=== PATIENT | female | born 1955 | race Caucasian/White ===

== ENCOUNTER → 2017-12-28 | Outpatient (CLI) | payer OTHER ==
[~2017-12-28] MED LIST: ACETAMINOPHEN325 M1 PO; ALPRAZOLAM 0.0.25 M1 PO; AUGMENTIN 875-1 EACH PO; CALCIUM 500+D1 EAC2 PO; CITRATE OF MAG296 ML PO; DULCOLAX5 MG PO; HYDROCODON-ACE1 EAC7 PO; HYDROCODON-ACE1 EACH PO; IBUPROFEN 200200 M1 PO; IBUPROFEN200 M2 PO; K-DUR 20 MEQ T20 MEQ PO; LOPERAMIDE 2 MG2 M1 PO; MAGNESIUM OXID200 MG PO; MELATONIN3 MG PO; MULTIVITAMINS1 EAC7 PO; NEURONTIN 300M300 M2 PO; PERCOCET 5-3251 EACH PO; ROCEPHIN 1 GM VL1 G1 IV; VITAMIN B-12500 MCG PO; VITAMIN E400 UNIT PO; VITCB500GO PO; XANAX 0.5 MG0.5 MG PO; ZOFRAN 4 MG ORAL4 MG DISSOLVE; ZOFRAN ODT4 MG PO; [UNRECOGNIZED DRUG - OTHER] PO
== END ==
LOC: M.WC 08:30
DX: L02.214 Cutaneous abscess of groin (principal); L02.415 Cutaneous abscess of right lower limb; S31.819A Unspecified open wound of right buttock, initial encounter; G62.9 Polyneuropathy, unspecified; L59.8 Other specified disorders of the skin and subcutaneous tissue related to radiation; L73.2 Hidradenitis suppurativa; F41.9 Anxiety disorder, unspecified; Z85.048 Personal history of other malignant neoplasm of rectum, rectosigmoid junction, and anus; Z87.891 Personal history of nicotine dependence; Z85.528 Personal history of other malignant neoplasm of kidney; Z86.718 Personal history of other venous thrombosis and embolism; Z93.2 Ileostomy status; Z90.710 Acquired absence of both cervix and uterus; W88.0XXA Exposure to X-rays, initial encounter; Y93.89 Activity, other specified; Y92.89 Other specified places as the place of occurrence of the external cause; Y99.8 Other external cause status

== ENCOUNTER → 2018-01-04 | Outpatient (CLI) | payer OTHER | LOC: M.WC 04:59 | DX: L02.415 Cutaneous abscess of right lower limb (principal); L02.215 Cutaneous abscess of perineum; N76.0 Acute vaginitis; L59.8 Other specified disorders of the skin and subcutaneous tissue related to radiation; L73.2 Hidradenitis suppurativa; G62.9 Polyneuropathy, unspecified; F41.9 Anxiety disorder, unspecified; Z86.718 Personal history of other venous thrombosis and embolism; Z85.048 Personal history of other malignant neoplasm of rectum, rectosigmoid junction, and anus; Z87.891 Personal history of nicotine dependence; Z85.528 Personal history of other malignant neoplasm of kidney; Z93.3 Colostomy status ==

== ENCOUNTER → 2018-01-11 | Outpatient (CLI) | payer OTHER | LOC: M.WC 04:56 | DX: L59.8 Other specified disorders of the skin and subcutaneous tissue related to radiation (principal); L02.215 Cutaneous abscess of perineum; L02.415 Cutaneous abscess of right lower limb; L73.2 Hidradenitis suppurativa; G62.9 Polyneuropathy, unspecified; F41.9 Anxiety disorder, unspecified; Z86.718 Personal history of other venous thrombosis and embolism; Z85.048 Personal history of other malignant neoplasm of rectum, rectosigmoid junction, and anus; Z87.891 Personal history of nicotine dependence; Z85.528 Personal history of other malignant neoplasm of kidney; L02.214 Cutaneous abscess of groin; Y84.2 Radiological procedure and radiotherapy as the cause of abnormal reaction of the patient, or of later complication, without mention of misadventure at the time of the procedure ==

== ENCOUNTER → 2018-02-06 | Outpatient (CLI) | payer OTHER ==
--- NOTE | 2018-02-06 11:23 | NUR ---
PATIENT ARRIVAL FROM HOME TO OP INFUSION AREA. MADE SELF COMFORTABLE IN RECLINER. CALL LIGHT AND REMOTE GIVEN TO PATIENT. HISTORY UPDATED AND ASSESSMENT COMPLETED. VS AND ORDERS REVIEWED. PICC LINE LEFT UPPER ARM WITH DRESSING C/D/I. UNABLE TO FLUSH OR ASPIRATE BLOOD FROM DUAL LUMEN PICC. DRESSING CHANGED TO PICC AND ORDERS OBTAINED PER DR. LOVING TO CATH FELIPE PICC LINE. CATH FLEIPE DRUG THEN INSTILLED AT 1217 CHARTED.
[2018-02-06 11:25] VITALS: BP 101/64
--- NOTE | 2018-02-06 13:17 | NUR ---
AFTER CATH FELIPE DWELL TIME AT AN HOUR, ATTEMPTED TO OBTAIN BLOOD RETURN WITHOUT SUCCESS. WILL ALLOW ANOTHER HOUR OF CATH FELIPE DWELL TIME.
--- NOTE | 2018-02-06 14:17 | NUR ---
AFTER 2 HOURS OF CATH FLOW DWELL TIME, ABLE TO WITHDRAW 5 MLS OF BLOOD FROM DUAL LUMENS OF PICC LINE. LABS DRAWN ORDERED PER DR. LOVING, THEN BOTH PORTS FLUSHED WITH NS 20MLS. ABLE TO THEN START INFUSION OF INVANZ ANTIBIOTIC ORDERED ONCE PICC LINE PATENCY ESTABLISHED.
[2018-02-06 14:49] LABS: HEMATOCRIT 28.7 % (37.0-47.0); HEMOGLOBIN 9.3 gm/dL (12.0-15.0); MCHC 32.3 g/dL (28.0-37.0); MCV 83.7 fL (80.0-100.0); MPV 6.9 fl. (7.2-11.1); RBC 3.43 mil/uL (4.20-5.00); RDW-CV 17.3 % (10.5-14.5); WBC 8.1 thou/uL (4.0-11.0)
--- NOTE | 2018-02-06 15:09 | NUR ---
PATIENT TOLERATES INFUSION OF ANTIBIOTIC WITHOUT PROBLEMS. DENIES CONCERNS. PATIENT THEN DEPARTS FOR HOME AMBULATORY AT 1509.
[2018-02-06 15:13] LABS: ALBUMIN 2.4 g/dL (3.4-5.0); CALCIUM 8.9 mg/dL (8.5-10.1); CREATININE 1.3 mg/dL (0.6-1.3); TOTAL BILIRUBIN 0.2 mg/dL (<0.1-1.0); TOTAL PROTEIN 6.2 g/dL (6.4-8.2)
== END ==
LOC: M.INFUS 02:10
PROVIDERS: Specialist
DX: N39.0 Urinary tract infection, site not specified (principal); B95.1 Streptococcus, group B, as the cause of diseases classified elsewhere

== ENCOUNTER → 2018-02-07 | Outpatient (CLI) | payer OTHER ==
[2018-02-07 09:15] VITALS: BP 115/67
--- NOTE | 2018-02-07 10:35 | NUR ---
ARRIVED AMBULATORY. MADE SELF COMFORTABLE IN RECLINER. PICC LINE CHECKED AND NOTED TO BE PATENT AND FREE FROM SIGN OF INFECTION. INFUSION COMPLETED AND TOLERAETD WELL. DENIES ADVERSE REACTION TO MULTIPLE INFUSIONS OF SAME. DENEIS NEEDS AT DISCHARGE.
== END ==
LOC: M.INFUS 02:44 → M.WC 02:44
DX: N39.0 Urinary tract infection, site not specified (principal); B95.1 Streptococcus, group B, as the cause of diseases classified elsewhere

== ENCOUNTER → 2018-02-08 | Outpatient (CLI) | payer OTHER ==
[2018-02-08 11:00] VITALS: BP 100/62
[2018-02-08 12:10] VITALS: BP 108/70
--- NOTE | 2018-02-08 12:31 | NUR ---
PATIENT ERTRAPENUIM INFUSION COMPLETE WITH NO COMPLAINTS OF ADVERSE EVENTS. LINE FLUSHED, DISCHARGE INSTRUCTIONS REVIEWED, PATIENT VERBALIZED UNDERSTANDING.
== END ==
LOC: M.INFUS 03:39
DX: N39.0 Urinary tract infection, site not specified (principal); B95.1 Streptococcus, group B, as the cause of diseases classified elsewhere

== ENCOUNTER → 2018-02-09 | Outpatient (CLI) | payer OTHER | LOC: M.INFUS 08:00 | DX: N39.0 Urinary tract infection, site not specified (principal); B95.1 Streptococcus, group B, as the cause of diseases classified elsewhere ==

== ENCOUNTER → 2018-02-11 | Outpatient (CLI) | payer OTHER ==
[2018-02-11 11:00] VITALS: BP 108/70
[2018-02-11 12:43] VITALS: BP 100/65
== END ==
LOC: M.INFUS 01:08
DX: N39.0 Urinary tract infection, site not specified (principal); B95.1 Streptococcus, group B, as the cause of diseases classified elsewhere

== ENCOUNTER → 2018-02-12 | Outpatient (CLI) | payer OTHER ==
[2018-02-12 11:05] VITALS: BP 127/68
[2018-02-12 12:20] VITALS: BP 132/70
== END ==
LOC: M.INFUS 02:22
DX: N39.0 Urinary tract infection, site not specified (principal); B95.1 Streptococcus, group B, as the cause of diseases classified elsewhere

== ENCOUNTER → 2018-02-13 | Outpatient (CLI) | payer OTHER ==
[2018-02-13 11:13] LABS: HEMATOCRIT 31.9 % (37.0-47.0); HEMOGLOBIN 10.2 gm/dL (12.0-15.0); MCHC 31.8 g/dL (28.0-37.0); MCV 84.9 fL (80.0-100.0); MPV 7.7 fl. (7.2-11.1); RBC 3.76 mil/uL (4.20-5.00); RDW-CV 17.9 % (10.5-14.5); WBC 8.2 thou/uL (4.0-11.0)
[2018-02-13 11:23] LABS: CREATININE 1.5 mg/dL (0.6-1.3); POTASSIUM 3.6 mmol/L (3.5-5.1)
--- NOTE | 2018-02-13 13:28 | NUR ---
ARRIVED AMBUILATORY. MADE SELF COMFORTABLE. PICC LINE PATENT. INFUSION COMPLETED AND TOELRATED WELL. WEEKLY LABS AND PICC DRESSING COMPLETED. DENIES NEEDS AT DISCHARGE.
== END ==
LOC: M.INFUS 03:06
PROVIDERS: Specialist
DX: N73.1 Chronic parametritis and pelvic cellulitis (principal)

== ENCOUNTER → 2018-02-14 | Outpatient (CLI) | payer OTHER ==
--- NOTE | 2018-02-14 12:20 | NUR ---
ARRIVED AMBULATORY. MADE SELF COMFORTABLE IN RECLINER. BOTH LUMAN OF PICC PATENT WITH GOOD BRISK BLOOD RETURN NOTED AND FLUSHED WITH EASE. INFUSION COMPLETED AND TOLERATED WELL. DENEIS NEEDS AT DISCHARGE.
== END ==
LOC: M.INFUS 04:51
DX: N73.1 Chronic parametritis and pelvic cellulitis (principal)

== ENCOUNTER → 2018-02-15 | Outpatient (CLI) | payer OTHER ==
[2018-02-15 11:00] VITALS: BP 106/67
== END ==
LOC: M.INFUS 00:38
DX: N73.1 Chronic parametritis and pelvic cellulitis (principal)

== ENCOUNTER → 2018-02-16 | Outpatient (CLI) | payer OTHER | LOC: M.INFUS 10:52 | DX: N73.1 Chronic parametritis and pelvic cellulitis (principal) ==

== ENCOUNTER → 2018-02-17 | Outpatient (CLI) | payer OTHER | LOC: M.INFUS 10:17 | DX: N73.1 Chronic parametritis and pelvic cellulitis (principal) ==

== ENCOUNTER → 2018-02-18 | Outpatient (CLI) | payer OTHER ==
[2018-02-18 11:10] VITALS: BP 101/60
--- NOTE | 2018-02-18 13:15 | NUR ---
ARRIVED AMUBLATORY. MADE SLEF COMFORTABLE IN RECLINER. INFUSION COMPLETED AND TOLERATED WELL. PT REPORTS HAVING 2 DR. APPOINTMENT TOMORROW AND WILL CONTACT INFUSION LAB IF NEEDING TO CONTINUE OR NEEDS PICC REMOVED. DENIES CURRENT NEEDS AT DISCHARGE.
== END ==
LOC: M.INFUS 01:26
DX: N73.1 Chronic parametritis and pelvic cellulitis (principal)

== ENCOUNTER → 2018-02-20 | Outpatient (CLI) | payer OTHER ==
[2018-02-20 11:30] VITALS: BP 94/60
[2018-02-20 11:36] LABS: HEMATOCRIT 31.3 % (37.0-47.0); HEMOGLOBIN 9.9 gm/dL (12.0-15.0); MCH 26.7 pg (26.0-34.0); MCHC 31.6 g/dL (28.0-37.0); MCV 84.7 fL (80.0-100.0); MPV 7.7 fl. (7.2-11.1); RBC 3.7 mil/uL (4.20-5.00); WBC 6.4 thou/uL (4.0-11.0)
[2018-02-20 12:13] LABS: ALBUMIN 2.8 g/dL (3.4-5.0); CREATININE 1.5 mg/dL (0.6-1.3); TOTAL BILIRUBIN 0.2 mg/dL (<0.1-1.0); TOTAL PROTEIN 7.1 g/dL (6.4-8.2)
--- NOTE | 2018-02-20 13:18 | NUR ---
ARRIVED AMBULATORY. PICC PATNET WITH GOOD BLOOD RETURN AND EASY FLUSH. WEEKLY LABS DRAWN FROM PICC. PICC DRESSING CHANGED. INFUSION COMPELTED AND TOELRAETED WELL. DENIES NEEDS AT DISCHARGE.
== END ==
LOC: M.INFUS 04:57
PROVIDERS: Specialist
DX: N73.1 Chronic parametritis and pelvic cellulitis (principal)

== ENCOUNTER → 2018-02-21 | Outpatient (CLI) | payer OTHER ==
[2018-02-21 11:00] VITALS: BP 122/70
--- NOTE | 2018-02-21 13:32 | NUR ---
ARRIVED AMBULATORY. MADE SELF COMFORTABLE IN RECLINER. PICC PATENT. DENIES ADVERSE REACTION TO MU,TOPEL INFUSIONS OF SAME. INFUSION COMPELTED AND TOELRATED WELL. LINE FLUSHED.
== END ==
LOC: M.INFUS 06:09
DX: N73.1 Chronic parametritis and pelvic cellulitis (principal)

== ENCOUNTER → 2018-02-22 | Outpatient (CLI) | payer OTHER ==
[2018-02-22 10:35] VITALS: BP 132/75
--- NOTE | 2018-02-22 14:06 | NUR ---
ARRIVED AMBULATORY. PT REPORTS TOUNGE SWELLING AND PAINFULL. ALSO AROUND MOUTH ITCHING. SPOKE WITH DR. LOVING AND NEW ORDER RECIEVED FOR BENADRYL 50MG PO X1 NOW AND INSTRUCT PT TO TAKE ZYRTEC DAILY AND BENADRYL PRE MED ON WAY IN FOR DAILY INFUSION. PT VOICED UNDERSTANDING AND AGREED. MITZI'S INFUSION COMPLETED AND TOLERATED WELL. PT REPORTED TOUGE SWELLING HAS LESSENED AND SHE IS FEELIN BETTER PRIOR TO DISCHARGE. PT INSTRUCTED TO COME BACK TO ED IF SWELLING RETURNS OF INCREASES.
== END ==
LOC: M.INFUS 04:41
DX: N73.1 Chronic parametritis and pelvic cellulitis (principal)

== ENCOUNTER → 2018-02-23 | Outpatient (CLI) | payer OTHER | LOC: M.INFUS 08:00 | DX: N73.1 Chronic parametritis and pelvic cellulitis (principal) ==

== ENCOUNTER → 2018-02-24 | Outpatient (CLI) | payer OTHER | LOC: M.INFUS 08:00 | DX: N73.1 Chronic parametritis and pelvic cellulitis (principal) ==

== ENCOUNTER → 2018-02-25 | Outpatient (CLI) | payer OTHER ==
[2018-02-25 10:50] VITALS: BP 142/71
--- NOTE | 2018-02-25 12:07 | NUR ---
ARRIVED AMBULATORY. MADE SELF COMFORTABLE IN RECLINER. PICC LINE PATENT. DENIES ADVERSE REACTION TO PRIOR INFUSIONS OF SAME. INFUSION COMPLETED AND TOELRATED WELL. DENIES NEEDS AT DISCAHRGE.
== END ==
LOC: M.INFUS 01:04
DX: N73.1 Chronic parametritis and pelvic cellulitis (principal)

== ENCOUNTER → 2018-02-26 | Outpatient (CLI) | payer OTHER ==
[2018-02-26 11:08] VITALS: BP 129/66
== END ==
LOC: M.INFUS 03:10
DX: N73.1 Chronic parametritis and pelvic cellulitis (principal)

== ENCOUNTER → 2018-02-27 | Outpatient (CLI) | payer OTHER ==
[2018-02-27 09:10] VITALS: BP 107/66
[2018-02-27 09:11] LABS: HEMATOCRIT 33.4 % (37.0-47.0); HEMOGLOBIN 10.8 gm/dL (12.0-15.0); MCH 27.1 pg (26.0-34.0); MCHC 32.2 g/dL (28.0-37.0); MCV 84.3 fL (80.0-100.0); MPV 7.5 fl. (7.2-11.1); RBC 3.97 mil/uL (4.20-5.00); WBC 6.4 thou/uL (4.0-11.0)
[2018-02-27 09:17] LABS: ALBUMIN 3.1 g/dL (3.4-5.0); CALCIUM 9.4 mg/dL (8.5-10.1); CREATININE 1.5 mg/dL (0.6-1.3); POTASSIUM 3.9 mmol/L (3.5-5.1); TOTAL BILIRUBIN 0.3 mg/dL (<0.1-1.0); TOTAL PROTEIN 7.6 g/dL (6.4-8.2)
--- NOTE | 2018-02-27 10:20 | NUR ---
ARRIVED AMBULATROY. MADE SELF COMFORTABLE IN RECLINER. PICC DRESSING CHANGE AND WEEKLY LABS DRAWN. INFUSION COMPLETED AND TOELRATED WELL. PICC FLUSHED
== END ==
LOC: M.INFUS 04:56
PROVIDERS: Specialist
DX: N73.1 Chronic parametritis and pelvic cellulitis (principal)

== ENCOUNTER → 2018-02-28 | Outpatient (CLI) | payer OTHER | LOC: M.INFUS 11:00 | DX: N73.1 Chronic parametritis and pelvic cellulitis (principal) ==

== ENCOUNTER → 2018-03-01 | Outpatient (CLI) | payer OTHER | LOC: M.INFUS 11:00 | DX: N73.9 Female pelvic inflammatory disease, unspecified (principal) ==

== ENCOUNTER → 2018-03-02 | Outpatient (CLI) | payer OTHER | LOC: M.INFUS 08:00 | DX: N73.9 Female pelvic inflammatory disease, unspecified (principal) ==

== ENCOUNTER → 2018-03-03 | Outpatient (CLI) | payer OTHER | LOC: M.INFUS 08:00 | DX: N73.9 Female pelvic inflammatory disease, unspecified (principal) ==

== ENCOUNTER → 2018-03-04 | Outpatient (CLI) | payer OTHER | LOC: M.CT 13:00 | DX: N73.9 Female pelvic inflammatory disease, unspecified (principal); I70.0 Atherosclerosis of aorta; M47.816 Spondylosis without myelopathy or radiculopathy, lumbar region; Z90.710 Acquired absence of both cervix and uterus; Z85.048 Personal history of other malignant neoplasm of rectum, rectosigmoid junction, and anus ==

== ENCOUNTER → 2018-03-04 | Outpatient (CLI) | payer OTHER ==
[2018-03-04 11:08] VITALS: BP 118/68
--- NOTE | 2018-03-04 12:42 | NUR ---
ARRIVED AMBULATORY. MADE SELF COMFORTABLE. PICC PATNET. INFUSION COMPLETED AND TOLERATED WELL. DENIES NEEDS AND QUESTIONS AT DISCAHRGE.
== END ==
LOC: M.INFUS 05:53
DX: N73.9 Female pelvic inflammatory disease, unspecified (principal)

== ENCOUNTER → 2018-03-06 | Outpatient (CLI) | payer OTHER ==
[2018-03-06 12:04] LABS: ABSOLUTE EOSINOPHILS 0.2 thou/uL (0.0-0.7); ABSOLUTE LYMPHOCYTES 1.4 thou/uL (0.8-5.3); ABSOLUTE MONOCYTES 0.4 thou/uL (0.0-1.2); ABSOLUTE NEUTROPHILS 5.7 thou/uL (1.6-8.1); BASOPHILS 0.6 %; EOSINOPHILS 2.7 %; HEMATOCRIT 30.5 % (37.0-47.0); HEMOGLOBIN 9.8 gm/dL (12.0-15.0); LYMPHOCYTES 17.7 %; MCH 27.2 pg (26.0-34.0); MCHC 32.2 g/dL (28.0-37.0); MCV 84.2 fL (80.0-100.0); MONOCYTES 5.7 %; MPV 7.5 fl. (7.2-11.1); NUCLEATED RBCS 0 /100WBC; PLATELET COUNT* 290 thou/uL (150-400); POLYS 73.3 %; RBC 3.63 mil/uL (4.20-5.00); RDW-CV 17.5 % (10.5-14.5); WBC 7.7 thou/uL (4.0-11.0)
[2018-03-06 12:20] LABS: ALBUMIN 2.9 g/dL (3.4-5.0); CALCIUM 8.8 mg/dL (8.5-10.1); CREATININE 1.4 mg/dL (0.6-1.3); POTASSIUM 4.2 mmol/L (3.5-5.1); TOTAL BILIRUBIN 0.2 mg/dL (<0.1-1.0); TOTAL PROTEIN 6.6 g/dL (6.4-8.2)
[2018-03-06 12:40] VITALS: BP 132/74
--- NOTE | 2018-03-06 12:49 | NUR ---
INFUSION COMPLETED AND TOLERATED WELL.
== END ==
LOC: M.INFUS 02:21
PROVIDERS: Specialist
DX: N73.9 Female pelvic inflammatory disease, unspecified (principal)

== ENCOUNTER → 2018-03-07 | Outpatient (CLI) | payer OTHER ==
[2018-03-07 11:32] VITALS: BP 127/80
== END ==
LOC: M.INFUS 03:38
DX: N73.9 Female pelvic inflammatory disease, unspecified (principal)

== ENCOUNTER → 2018-03-08 | Outpatient (CLI) | payer OTHER ==
[2018-03-08 10:30] VITALS: BP 104/63
== END ==
LOC: M.INFUS 04:32
DX: N73.9 Female pelvic inflammatory disease, unspecified (principal)

== ENCOUNTER → 2018-03-09 | Outpatient (CLI) | payer OTHER | LOC: M.INFUS 08:00 | DX: N73.9 Female pelvic inflammatory disease, unspecified (principal) ==

== ENCOUNTER → 2018-03-10 | Outpatient (CLI) | payer OTHER | LOC: M.INFUS 08:00 | DX: N73.9 Female pelvic inflammatory disease, unspecified (principal) ==

== ENCOUNTER → 2018-03-11 | Outpatient (CLI) | payer OTHER ==
[2018-03-11 11:00] VITALS: BP 114/66
== END ==
LOC: M.INFUS 05:29
DX: N73.9 Female pelvic inflammatory disease, unspecified (principal)

== ENCOUNTER → 2018-03-12 | Outpatient (CLI) | payer OTHER ==
[2018-03-12 11:50] VITALS: BP 100/63
--- NOTE | 2018-03-12 13:10 | NUR ---
ARRIVED AMBULATORY FROM [facility]. PICC CHECKED FOR PATENCY. GOOD BRISK BLOOD RETURN NOTED AND FLUSHED WITH EASE. INFUSION COMPLETED AND TOELRATED WELL. PICC FLUSHED. DENIES NEEDS AT DISCHARGE.
== END ==
LOC: M.INFUS 05:04
DX: N73.9 Female pelvic inflammatory disease, unspecified (principal)

== ENCOUNTER → 2018-03-13 | Outpatient (CLI) | payer OTHER ==
[2018-03-13 10:58] VITALS: BP 112/58
[2018-03-13 11:29] LABS: HEMATOCRIT 33.8 % (37.0-47.0); HEMOGLOBIN 10.9 gm/dL (12.0-15.0); MCH 27.1 pg (26.0-34.0); MCHC 32.1 g/dL (28.0-37.0); MCV 84.5 fL (80.0-100.0); MPV 7.8 fl. (7.2-11.1); RDW-CV 17.8 % (10.5-14.5); WBC 5.9 thou/uL (4.0-11.0)
[2018-03-13 11:43] LABS: ALBUMIN 3.1 g/dL (3.4-5.0); CALCIUM 9.1 mg/dL (8.5-10.1); CREATININE 1.5 mg/dL (0.6-1.3); POTASSIUM 3.6 mmol/L (3.5-5.1); TOTAL BILIRUBIN 0.3 mg/dL (<0.1-1.0)
== END ==
LOC: M.INFUS 05:30
PROVIDERS: Specialist
DX: N73.9 Female pelvic inflammatory disease, unspecified (principal)

== ENCOUNTER → 2018-03-14 | Outpatient (CLI) | payer OTHER ==
[2018-03-14 11:00] VITALS: BP 94/57
== END ==
LOC: M.INFUS 04:37
DX: N73.9 Female pelvic inflammatory disease, unspecified (principal)

== ENCOUNTER → 2018-03-18 | Outpatient (CLI) | payer OTHER ==
--- NOTE | 2018-03-18 10:28 | NUR ---
PATIENT ARRIVAL AMBULATORY FROM HOME TO OP INFUSION AREA. MADE SELF COMFORTABLE IN RECLINER. CALL LIGHT AND REMOTE GIVEN TO PATIENT. HISTORY AND ORDERS REVIEWED. REASSESSMENT AND VS OBTAINED. LT UPPER ARM DUAL LUMEN PICC LINE WITH DRESSING C/D/I. NO REDNESS OR EDEMA NOTED AT SITE. BRISK BLOOD RETURN OBTAINED FROM PICC. INVANZ THERAPY THEN STARTED PER EMAR ONCE AVAILABLE FROM PHARMACY.
[2018-03-18 10:30] VITALS: BP 122/75
--- NOTE | 2018-03-18 11:53 | NUR ---
ANTIBIOTIC THERAPY COMPLETED. PICC LINE FLUSHED WITH NS. PATIENT DEPARTS FOR HOME AT 1155.
== END ==
LOC: M.INFUS 02:39
DX: N73.9 Female pelvic inflammatory disease, unspecified (principal)

== ENCOUNTER → 2018-03-19 | Outpatient (CLI) | payer OTHER ==
[2018-03-19 10:30] VITALS: BP 128/67
--- NOTE | 2018-03-19 10:48 | NUR ---
Checked PICC line for blood return. Red port was sluggish but was able to have return of blood and flushed. Purple port site flushed easily and had brisk blood return. Started infusion of Ertapenem 1 gm at 1046. Pt sitting comfortably in recliner with warm blanket provided.
== END ==
LOC: M.INFUS 04:32
DX: N73.9 Female pelvic inflammatory disease, unspecified (principal)

== ENCOUNTER → 2018-03-20 | Outpatient (CLI) | payer OTHER ==
[2018-03-20 11:10] VITALS: BP 132/74
[2018-03-20 11:18] LABS: ABSOLUTE EOSINOPHILS 0.3 thou/uL (0.0-0.7); ABSOLUTE LYMPHOCYTES 1.6 thou/uL (0.8-5.3); ABSOLUTE MONOCYTES 0.4 thou/uL (0.0-1.2); BASOPHILS 0.8 %; EOSINOPHILS 4.8 %; HEMATOCRIT 34.5 % (37.0-47.0); HEMOGLOBIN 11.1 gm/dL (12.0-15.0); MCH 27.8 pg (26.0-34.0); MCHC 32.2 g/dL (28.0-37.0); MCV 86.3 fL (80.0-100.0); MONOCYTES 7.9 %; MPV 7.9 fl. (7.2-11.1); NUCLEATED RBCS 0 /100WBC; PLATELET COUNT* 268 thou/uL (150-400); POLYS 56.5 %; WBC 5.2 thou/uL (4.0-11.0)
[2018-03-20 11:27] LABS: ALBUMIN 3.1 g/dL (3.4-5.0); CREATININE 1.5 mg/dL (0.6-1.3); POTASSIUM 4.1 mmol/L (3.5-5.1); TOTAL BILIRUBIN 0.3 mg/dL (<0.1-1.0); TOTAL PROTEIN 6.9 g/dL (6.4-8.2)
--- NOTE | 2018-03-20 13:49 | NUR ---
PICC PATENT. INFUSION COMPLETED AND TOELRATED WELL. DENIES NEEDS AT DISCHARGE.
== END ==
LOC: M.INFUS 02:39
PROVIDERS: Specialist
DX: N73.9 Female pelvic inflammatory disease, unspecified (principal)

== ENCOUNTER → 2018-03-21 | Outpatient (CLI) | payer OTHER ==
[2018-03-21 10:32] VITALS: BP 132/78
== END ==
LOC: M.WC 05:02 → M.INFUS 11:00
DX: L59.8 Other specified disorders of the skin and subcutaneous tissue related to radiation (principal); L73.2 Hidradenitis suppurativa; L02.214 Cutaneous abscess of groin; G62.9 Polyneuropathy, unspecified; F41.9 Anxiety disorder, unspecified; Z86.718 Personal history of other venous thrombosis and embolism; Z87.891 Personal history of nicotine dependence; Z85.048 Personal history of other malignant neoplasm of rectum, rectosigmoid junction, and anus; Z85.53 Personal history of malignant neoplasm of renal pelvis; Y84.2 Radiological procedure and radiotherapy as the cause of abnormal reaction of the patient, or of later complication, without mention of misadventure at the time of the procedure

== ENCOUNTER → 2018-04-19 | Outpatient (CLI) | payer OTHER | LOC: M.WC 04:44 | DX: L59.8 Other specified disorders of the skin and subcutaneous tissue related to radiation (principal); L73.2 Hidradenitis suppurativa; L02.214 Cutaneous abscess of groin; G62.9 Polyneuropathy, unspecified; F41.9 Anxiety disorder, unspecified; Z87.891 Personal history of nicotine dependence; Z85.048 Personal history of other malignant neoplasm of rectum, rectosigmoid junction, and anus; Z85.528 Personal history of other malignant neoplasm of kidney; Z86.718 Personal history of other venous thrombosis and embolism; Y84.2 Radiological procedure and radiotherapy as the cause of abnormal reaction of the patient, or of later complication, without mention of misadventure at the time of the procedure ==

== ENCOUNTER 2020-09-22 13:54 | Inpatient (IN) | payer OTHER ==
[~2020-09-22] VITALS: Ht 162.6 cm; Wt 97.8 kg
--- NOTE | ~2020-09-22 | CON ---
[address] [address] CONSULTATION Name: OFFICERMARTIN Room: [address] IN M.R.#: [id number] Admission: 09/22/20 Attend Phys: Nathan Zuniga MD Discharge: Date of : 59 Report #: [id number] THIS REPORT FOR: cc: Sammie Rodriguez Linda J. DO Elia, Manana MD ~ DOC #: [id number] Scarlett Llamas MD DATE OF CONSULTATION: 09/23/2020 REASON FOR CONSULTATION: Hypercalcemia and bone lesions. REQUESTING PHYSICIAN: Dr. Zuniga. HISTORY OF PRESENT ILLNESS: The patient is a pleasant 65-year-old female who was admitted to the hospital with complaints of intractable back pain. She states that she has been having neck pain, leg pain for several months. She was treated by a chiropractor. She was advised that she needs to have back massage. She was getting back massage and thought that she was getting better. Over several months, back pain got worse, especially in the lower back and the patient was admitted to the hospital with intractable back pain. She had CT scan of the spine, which showed multiple osteolytic lesions, largest lesion was at T12. She was found to have hypercalcemia as well. Presentation was suspicious for multiple myeloma according to radiology conclusion and oncology consult is requested. She is doing okay. She is alert, oriented. She continues to have low back pain. She does not have headaches. She has not lost any weight. Denies cough, shortness of breath. She states she has not had mammograms before. She does not get mammograms. She has history of rectal carcinoid cancer treated with chemoradiation. She is under care of Dr. Aquino. She has one kidney. She had a nephrectomy and an ileostomy reversal was done because of complications of benign process, but she has never had a renal cell carcinoma. FAMILY HISTORY: Noncontributory. SOCIAL HISTORY: She does not smoke, does not drink alcohol. PHYSICAL EXAMINATION: GENERAL: Reveals well-developed, well-nourished female, not in acute distress. VITAL SIGNS: Blood pressure 118/67, heart rate is 66, respirations 18, temperature 97.5. NECK: Supple. HEART: Normal S1, S2. LUNGS: Clear. ABDOMEN: Soft. There is no suprac[place] [address] CONSULTATION Name: OFFICERMARTIN Room: [address]#: [id number] Admission: 09/22/20 Attend Phys: Nathan Zuniga MD Discharge: Date of : 59 Report #: [id number] SKIN: Does not reveal rash. MENTAL STATUS: Alert and oriented x 3. LABORATORY DATA: White count 8.3, hemoglobin 11.3, platelets 266. Sodium 137, potassium 3.3, BUN 60, creatinine 2.7. Calcium 12.9, total protein 7.2, albumin 3.0. CT of spine was reviewed. ASSESSMENT AND PLAN: 1. Bone lesions. Clinical picture is more suspicious for metastatic solid tumor. I am planning to order CA 27-29, CA 19-9, CEA. We will order serum protein electrophoresis and protein electrophoresis, although my suspicious for myeloma is not very high. I recommend to consult IR for biopsy of spinal lesion or rib lesion. 2. Hypercalcemia, most likely hypercalcemia of malignancy. When diagnosis is established, we can give her Zometa. Thank you very much for allowing me to participate in care of this patient. MD ANTHONY iRchey/EMI/[facility] By: 2147 [id number] Llamas MD /nt
[2020-09-22 14:22] VITALS: BP 108/71
[2020-09-22 14:49] LABS: ABSOLUTE EOSINOPHILS 0.1 thou/uL (0.0-0.7); ABSOLUTE LYMPHOCYTES 1.4 thou/uL (0.8-5.3); ABSOLUTE MONOCYTES 0.6 thou/uL (0.0-1.2); ABSOLUTE NEUTROPHILS 6.9 thou/uL (1.6-8.1); BASOPHILS 0.5 %; EOSINOPHILS 0.7 %; HEMOGLOBIN 12.9 gm/dL (12.0-15.0); LYMPHOCYTES 15.8 %; MCH 31.4 pg (26.0-34.0); MCV 92.3 fL (80.0-100.0); MONOCYTES 6.6 %; MPV 8.4 fl. (7.2-11.1); NUCLEATED RBCS 0 /100WBC; PLATELET COUNT* 320 thou/uL (150-400); POLYS 76.4 %; RBC 4.12 mil/uL (4.20-5.00); RDW-CV 15.5 % (10.5-14.5); WBC 9.1 thou/uL (4.0-11.0)
[2020-09-22 14:59] LABS: CREATININE 2.9 mg/dL (0.6-1.3); POTASSIUM 3.5 mmol/L (3.5-5.1)
[2020-09-22 15:03] LABS: MAGNESIUM 1.9 mg/dL (1.8-2.4); TOTAL BILIRUBIN 0.3 mg/dL (<0.1-1.0); TOTAL PROTEIN 7.2 g/dL (6.4-8.2)
[2020-09-22 16:51] VITALS: BP 119/80
[2020-09-22 17:00] VITALS: BP 120/48
--- NOTE | 2020-09-22 18:44 | NUR ---
RECEIVED REPORT FROM BARBRA REILLY. PT ARRIVED ON UNIT AROUND 1700. ASSUMED CARE. VS STABLE. ADMIT DONE. FALL RISK BRACELET ON PT. IV INTACT. HEART MONITOR ATTACHED AT SR. PT IN BED. Q2 TURNS. MEDS GIVEN PER MAR. HOURLY ROUNDING PERFORMED. FAMILY AT BEDSIDE. ILEOSTOMY INTACT. PAIN MEDS GIVEN. CALL LIGHT WITH IN REACH. WILL CONTINUE TO MONITOR.
[2020-09-22 20:24] VITALS: BP 115/74
[2020-09-22] MEDS ORDERED: MELATONIN5 MG PO (21:10)
[2020-09-22 23:49] VITALS: BP 105/71
[2020-09-23 03:50] VITALS: BP 101/57
[2020-09-23 04:36] LABS: ABSOLUTE EOSINOPHILS 0.1 thou/uL (0.0-0.7); ABSOLUTE LYMPHOCYTES 1.7 thou/uL (0.8-5.3); ABSOLUTE MONOCYTES 0.7 thou/uL (0.0-1.2); ABSOLUTE NEUTROPHILS 5.9 thou/uL (1.6-8.1); BASOPHILS 0.3 %; EOSINOPHILS 1.6 %; HEMATOCRIT 34.5 % (37.0-47.0); HEMOGLOBIN 11.5 gm/dL (12.0-15.0); LYMPHOCYTES 19.6 %; MCH 30.9 pg (26.0-34.0); MCHC 33.4 g/dL (28.0-37.0); MCV 92.6 fL (80.0-100.0); MONOCYTES 8.2 %; MPV 8.8 fl. (7.2-11.1); NUCLEATED RBCS 0 /100WBC; PLATELET COUNT* 266 thou/uL (150-400); POLYS 70.3 %; RBC 3.73 mil/uL (4.20-5.00); RDW-CV 15.4 % (10.5-14.5); WBC 8.5 thou/uL (4.0-11.0)
[2020-09-23 04:37] LABS: CREATININE 2.7 mg/dL (0.6-1.3); POTASSIUM 3.3 mmol/L (3.5-5.1)
[2020-09-23 04:56] LABS: CALCIUM 12.6 mg/dL (8.5-10.1)
--- NOTE | 2020-09-23 05:21 | NUR ---
PT IS ABLE TO COMMUNICATE HER NEEDS TO STAFF WITH MINOR DIFFICULTY; SHE IS [id number]. CURRENT PAIN MEDICATION REGIMEN HAS BEEN ADEQUATE FOR CONTROLLING HER PAIN UP TO THIS TIME. ILEOSTOMY HAS BEEN PATENT UP TO THIS TIME. SHE HAS BEEN NPO SINCE MIDNIGHT; WILL FOLLOW UP WITH MD ON DAY SHIFT.
[2020-09-23 08:00] VITALS: BP 117/67
--- NOTE | 2020-09-23 10:02 | NUR ---
CM ASSESSMENT: PT A&O, INDEPENDENT WITH ADL'S, ACTIVE AND DRIVES. PT RESIDES AT HOME ALONE. PT HAS BEEN USING A CANE AT HOME D/T A RECENT FALL. PT HAS A PAST HX OF HH. PT HAS 0 HX OF SNF. NO CM D/C PLANNING NEEDS ANTICIPATED. CM WILL REMAIN AVAILABLE TO ASSIST AND FOLLOW NEEDED.
--- NOTE | 2020-09-23 10:41 | NUR ---
Nutrition: consult for wound on rt buttock. Admit with ARF, hx of only one kideny and ibuprofen use for back pain CHILD CARE. Hx of rectal CA, ileostomy. Now with possible metastatic lesions, myeolma. Reports normal appetite, wt loss of 3 lb from UBW 185 lb, which pt related to dehydration. Pt reports drinking Premier Protein at home, did not care for chocolate Ensure Max, would like to try orange Francis. Pt assessed at mild nutrition risk, f/u 09/29.
--- NOTE | 2020-09-23 11:46 | EKG ---
[place] [address] ELECTROCARDIOGRAM REPORT Name: OFFICERMARTIN Room: [address] ADM IN M.R.#: [id number] Admission: 09/22/20 Attend Phys: Nathan Znuiga, Discharge: Date of : 59 Date of Service: 09/22/20 1548 Report #: [id number] THIS REPORT FOR: //name// [facility] ED Test Date: 2020-09-22 Test Time: 15:48:35 Pat Name: MARTIN OFFICER Department: Room: [facility] Gender: F Street Photographer: NGA : 1955 Requested By: Gena Olivarez Order Number: [id number] MD: Elbert Cheung Measurements Intervals [place] Rate: 60 P: -27 MA: 165 QRS: -5 QRSD: 88 T: 13 QT: 401 QTc: 401 Interpretive Statements Sinus rhythm anterior q waves noted Low voltage, precordial leads Borderline T abnormalities, anterior leads Compared to ECG 01/16/2013 08:00:21 T-wave abnormality and q waves now present Electronically Signed On 09-23-2020 11:46:06 CDT by Elbert Cheung [email or web address] <ELECTRONICALLY SIGNED> By: Elbert Cheung MD, [facility] 09/23/20 1146 1548 1548 Elbert Cheung MD, [facility] /EPI
[2020-09-23 12:00] VITALS: BP 118/67
[2020-09-23 16:00] VITALS: BP 122/72
[2020-09-23 20:00] VITALS: BP 139/72
[2020-09-24] VITALS (8 sets, daily range): BP systolic 109–175; BP diastolic 52–90
--- NOTE | 2020-09-24 05:28 | NUR ---
PT SLEPT OFF AND ON OVERNIGHT, RECEIVED SLEEP AIDE AT HS. IV AND PO PAIN MED GIVEN FOR CO BACK PAIN. AOX4. TELE SR. LFA IVF INFUSING PER PUMP. SCDS ON, PT REFUSING HEPARIN-STATES SHE IS A "BLEEDER" AND WILL NOT TAKE ANTICOAGULANTS. ILEOSTOMY SELF CARE. UP WITH SBA. PT HAS ONE KIDNEY ONLY. NPO FOR IR BIOPSY OF SPINE LESIONS. HEM/ONC CONSULTING. DRSG TO R BUTTOCK CHANGED AT HS, DRAINING MARTINEZ LIQUID SMALL AMOUNT.CALL LITE IN EASY REACH.
[2020-09-24 09:15] LABS: ABSOLUTE EOSINOPHILS 0.1 thou/uL (0.0-0.7); ABSOLUTE LYMPHOCYTES 1.5 thou/uL (0.8-5.3); ABSOLUTE MONOCYTES 0.6 thou/uL (0.0-1.2); ABSOLUTE NEUTROPHILS 4.3 thou/uL (1.6-8.1); BASOPHILS 0.5 %; EOSINOPHILS 2.1 %; HEMATOCRIT 34.1 % (37.0-47.0); HEMOGLOBIN 11.3 gm/dL (12.0-15.0); LYMPHOCYTES 23.2 %; MCH 30.4 pg (26.0-34.0); MCV 92.1 fL (80.0-100.0); MONOCYTES 8.5 %; MPV 8.1 fl. (7.2-11.1); NUCLEATED RBCS 0 /100WBC; PLATELET COUNT* 242 thou/uL (150-400); POLYS 65.7 %; RBC 3.71 mil/uL (4.20-5.00); WBC 6.6 thou/uL (4.0-11.0)
[2020-09-24 09:26] LABS: APTT 24.6 Seconds (25.0-31.3); INR 1.1; PROTIME 11.2 Seconds (9.20-11.50)
[2020-09-24 09:30] LABS: ALBUMIN 2.7 g/dL (3.4-5.0); CREATININE 1.9 mg/dL (0.6-1.3); POTASSIUM 3.3 mmol/L (3.5-5.1); TOTAL BILIRUBIN 0.5 mg/dL (<0.1-1.0); TOTAL PROTEIN 6.6 g/dL (6.4-8.2)
--- NOTE | 2020-09-24 12:35 | NUR ---
PLAN OF CARE: PHYSICIAN INFORMS OF POSSIBLE WEEKEND D/C FOR PT. POSSIBLE NEPHROLOGY CONSULT. NO CM D/C PLANNING NEEDS ANTICIPATED. CM WILL REMAIN TO ASSIST AND FOLLOW NEEDED.
[2020-09-24 18:45] LABS: URINE BILIRUBIN NEGATIVE (Negative); URINE BLOOD NEGATIVE (Negative); URINE CLARITY CLEAR; URINE COLOR YELLOW; URINE GLUCOSE-RANDOM NEGATIVE (Negative); URINE KETONES NEGATIVE (Negative); URINE LEUKOCYTES NEGATIVE (Negative); URINE NITRITE NEGATIVE (Negative); URINE PROTEIN 1+ (Negative); URINE SPECIFIC GRAVITY 1.025 (1.005-1.030); URINE UROBILINOGEN 0.2 E.U./dl (0.2-1.0)
[2020-09-25 02:07] LABS: IgA 113 mg/dL (87-352); IgG 828 mg/dL (586-1602); IgM 175 mg/dL (26-217)
[2020-09-25 04:01] VITALS: BP 151/85
[2020-09-25 04:47] LABS: HEMATOCRIT 32.2 % (37.0-47.0); HEMOGLOBIN 10.8 gm/dL (12.0-15.0); MCH 30.7 pg (26.0-34.0); MCHC 33.5 g/dL (28.0-37.0); MCV 91.5 fL (80.0-100.0); MPV 8.7 fl. (7.2-11.1); NUCLEATED RBCS 0 /100WBC; PLATELET COUNT* 229 thou/uL (150-400); RBC 3.52 mil/uL (4.20-5.00); RDW-CV 15.4 % (10.5-14.5); WBC 5.3 thou/uL (4.0-11.0)
[2020-09-25 04:53] LABS: ALBUMIN 2.6 g/dL (3.4-5.0); CREATININE 1.9 mg/dL (0.6-1.3); PHOSPHORUS* 3.3 mg/dL (2.5-4.9); TOTAL BILIRUBIN 0.2 mg/dL (<0.1-1.0); TOTAL PROTEIN 6.5 g/dL (6.4-8.2)
[2020-09-25 04:54] LABS: POTASSIUM 4.5 mmol/L (3.5-5.1)
--- NOTE | 2020-09-25 05:11 | NUR ---
PT ALERT ORIENTED. INAPPROPRIATE AT TIMES. PT STATED IVP LOOKED LIKE A BATTERY THAT WAS MELTING. PT CALLING OUT FREQUENTLY FOR VARIOUS THINGS. AT ONE POINT PT CALLED OUT SAYING SHE WAS HYPERVENTILATING. UPON ENTERING THE ROOM PT WAS CALM AND RELAXED. POINTED AT THE THERMOSTAT AND SAID CAN YOU TURN UP THE HEAT. PT CALLED OUT FOR PAIN MEDIACATION AND TOOK OXYCODONE 20MG AT 2321. PT CALLED OUT LESS THAN ONE HOUR FOR FENTYNEL AND STATED HER PAIN HAD GOTTEN WORSE. PT WAS GIVEN FENTYNL AT 0018. IN LESS THAN AN HOUR PT CALLED OUT AGAIN FOR MORE PAIN MEDICATION. REASSURANCE PROVIDED. MODEL ARTISTS' TRACING SR/SB. PT GETS UP WITH ONE PERSON ASSIST AND A CANE. ILIOSTOMY EMPTIED PER PT 450ML.
[2020-09-25 06:59] LABS: ABSOLUTE LYMPHOCYTES 0.5 thou/uL (0.8-5.3); ABSOLUTE NEUTROPHILS 4.8 thou/uL (1.6-8.1); PLATELET ESTIMATE ADEQUATE
[2020-09-25 08:30] VITALS: BP 133/75
[2020-09-25 12:00] VITALS: BP 103/64
[2020-09-25 14:10] VITALS: BP 132/71
[2020-09-25 15:37] VITALS: BP 122/73
--- NOTE | 2020-09-25 19:03 | NUR ---
Patient resting in room with all belongings and call light within reach. Pain med given and states some relief. All meds given per MAR. Had visitors today. She is having friend go to her home to get her illiostomy supplies as our hospital does not have what she needs. Report to be given to plant operator/shift supervisor nurse.
[2020-09-25 19:06] LABS: CA 27.29-BREAST CARCINOMA AG 1885.9 U/mL (0.0-38.6)
[2020-09-25 20:00] VITALS: BP 128/77
[2020-09-25 22:06] LABS: KAPPA FREE LIGHT CHAINS 29.5 mg/L (3.3-19.4); LAMBDA FREE LIGHT CHAINS 31.1 mg/L (5.7-26.3)
[2020-09-26] VITALS (7 sets, daily range): BP systolic 121–149; BP diastolic 70–86
[2020-09-26 05:14] LABS: ABSOLUTE LYMPHOCYTES 0.7 thou/uL (0.8-5.3); ABSOLUTE MONOCYTES 0.2 thou/uL (0.0-1.2); ABSOLUTE NEUTROPHILS 7.1 thou/uL (1.6-8.1); BASOPHILS 0.2 %; EOSINOPHILS 0.1 %; HEMATOCRIT 33.8 % (37.0-47.0); LYMPHOCYTES 8.2 %; MCH 30.3 pg (26.0-34.0); MCHC 32.7 g/dL (28.0-37.0); MCV 92.8 fL (80.0-100.0); MPV 8.7 fl. (7.2-11.1); NUCLEATED RBCS 0 /100WBC; PLATELET COUNT* 244 thou/uL (150-400); POLYS 88.5 %; RBC 3.65 mil/uL (4.20-5.00); RDW-CV 15.5 % (10.5-14.5)
[2020-09-26 05:32] LABS: ALBUMIN 2.9 g/dL (3.4-5.0); CREATININE 1.8 mg/dL (0.6-1.3); POTASSIUM 4.4 mmol/L (3.5-5.1); TOTAL BILIRUBIN 0.3 mg/dL (<0.1-1.0); TOTAL PROTEIN 6.9 g/dL (6.4-8.2)
--- NOTE | 2020-09-26 05:32 | NUR ---
PATIENT SLEPT WELL DURING THIS SHIFT. PT SR ON FORWARDER OPERATOR WITH HR AT 60. PT WITH FLUIDS INFUSING PER DR ORDER IN RT FOREARM. PT REQUESTED FENTANYL 75MCG AT HS. PT UP WITH ASSIST TO BATHROOM. PT IS ON ROOM AIR. PT WITH ILEOSTOMY AND DOES SELF CARE. PT WITH DSG ON RT BUTTOCKS FOR WOUND DRAINAGE. PT DENIES NEEDS AT THIS TIME. FREQUENTLY USED ITEMS AND CALL LIGHT WITHIN REACH. SIDERAILS UPX2 AND BED ALARM ON. WILL CONTINUE TO MONITOR.
[2020-09-26 05:34] LABS: CALCIUM 13.3 mg/dL (8.5-10.1)
[2020-09-26] MEDS ORDERED: NEURONTIN 300M300 M2 PO (06:14)
[2020-09-26] MEDS ORDERED: PAIN RELIEVER500 MG PO (06:14)
[2020-09-26] MEDS ORDERED: DEXAMETHASONE 44 M1 PO (06:14)
[2020-09-26] MEDS ORDERED: ZOFRAN4 MG PO (06:14)
[2020-09-26] MEDS ORDERED: LASIX 20 MG TAB20 MG PO (06:14)
[2020-09-26] MEDS ORDERED: MIRALAX17 GM PO (06:14)
[2020-09-26] MEDS ORDERED: OXYCODONE HCL 55 MG PO (06:14)
--- NOTE | 2020-09-26 13:25 | CON ---
[address] [address] CONSULTATION Name: OFFICERMARTIN Room: [address] IN M.R.#: [id number] Admission: 09/22/20 Attend Phys: Nathan Zuniga MD Discharge: Date of : 59 Report #: [id number] THIS REPORT FOR: cc: Sammie Rodriguez Linda J. DO Khan, Abid R. MD ~ DOC #: [id number] Polo Massey MD DATE OF CONSULTATION: 09/24/2020 NEPHROLOGY CONSULT CONSULTING PHYSICIAN: Nathan Zuniga MD REASON FOR CONSULTATION: Acute kidney injury. HISTORY OF PRESENT ILLNESS: A 65-year-old female with no preexisting history of known kidney disease. Has seen a urologist as she did have a nephrectomy as a complication of surgery for rectal cancer in the past, but kidney-meraz had been doing fine and is not aware of any kidney disease who is admitted with pain and during the course of her workup was found to have multiple lytic lesions on the spine and a right breast mass with lymph node involvement and possible hepatic metastases. Oncology has been consulted and the patient did undergo a bone biopsy by Interventional Radiology. Calcium was 13 on admission. She has been taking 5-6 Tums a day along with vitamin D3. Denies any NSAID use. No nausea or vomiting. She has been started on some fluids. She currently appears to be comfortable. Denies any constipation or confusion and has no complaints at present time. REVIEW OF SYSTEMS: Constitutional, psych, heme, eyes, ENT, respiratory, cardiac, GI, , endocrine, all negative except as documented above. PAST MEDICAL HISTORY: Rectal cancer with ileostomy. She did develop complication and underwent a nephrectomy due to bleeding and has only 1 kidney. History of DVT, IVC filter. FAMILY HISTORY: Nonpertinent 65-year-old female. SOCIAL HISTORY: Former smoker. CURRENT MEDICATIONS: Reviewed. PHYSICAL EXAMINATION: VITAL SIGNS: Blood pressure is ____[TIME: 01:55]/69, pulse 72, respirations 17, temperature 36.8. [place] [address] CONSULTATION Name: OFFICERMARTIN Room: [address] IN [facility]#: [id number] Admission: 09/22/20 Attend Phys: Nathan Zuniga MD Discharge: Date of : 59 Report #: [id number] GENERAL: No acute distress. EYES: Open. EARS: Externally normal. NECK: Supple. CARDIOVASCULAR: Regular rate. LUNGS: No crackles. ABDOMEN: Soft. MUSCULOSKELETAL: Nontender. NEUROLOGIC: Awake, alert, hard of hearing. PSYCHIATRIC: Awake and not disoriented. LABORATORY DATA: White cell count 6.6, hemoglobin 11.3, platelets 242. Sodium 138, potassium 3.3, chloride 104, bicarbonate 24, BUN 45, creatinine 1.9, glucose of 81, calcium 13, albumin 2.7. ASSESSMENT AND PLAN: 1. Acute kidney injury with an admission creatinine of 2.9 in setting of hypercalcemia. CT scan, right kidney not seen. Left kidney okay. In 2018, creatinine 1.5 and calcium was normal at that time. 2. Hypercalcemia in the setting of bony lytic lesions and right breast mass with an albumin of 2.7. She was also taking 5-6 Tums a day and vitamin D3. 3. Chronic kidney disease stage 3A. 4. Hypoalbuminemia with albumin of 2.7. 5. Right breast mass concerning for cancer with lymph node involvement, hepatic metastases, lytic bone lesions and pathologic fracture. Oncology has been consulted. 6. History of rectal cancer and ileostomy. Plan on dexamethasone per Dr. Llamas. Continue IV fluids, check SPEP, serum immunofixation, free light chain assay. 7. Hypokalemia. We will replace. 8. Renal function is improving. 9. We will administer 1 dose of pamidronate. She currently does not appear to be significantly symptomatic with regard to her hypercalcemia, no indication for calcitonin. We will check urinalysis. Thank you for requesting my opinion in the care and management of this patient. MD ANDRES Andrew/LEE ANN/[place] [address] CONSULTATION Name: OFFICERMARTIN Room: [address] IN .R.#: [id number] Admission: 09/22/20 Attend Phys: Nathan Zuniga MD Discharge: Date of : 59 Report #: [id number] <ELECTRONICALLY SIGNED> By: Polo Massey MD 09/26/20 1325 1532 [id number] Massey MD /nt
--- NOTE | 2020-09-26 16:11 | NUR ---
Patient's family in room. Patient has not required pain medicine this day shift. Talked to patient about d/c and scheduling the 2 ordered scans outpatient.
--- NOTE | 2020-09-26 17:05 | NUR ---
Patient does not feel comfortable/ safe going home today due to pain control and safety. She has MRI and full body scan ordered. Will pass info on to story teller.
--- NOTE | 2020-09-26 18:36 | NUR ---
Patient resting in room in bed, NS running at 100 ml/ hr through right wrist IV, up to bathroom with standby assist, pt has ostomy bag she empties herself. call light and all personal belongings within reach. Will give report to overnight caregiver.
[2020-09-27 04:08] VITALS: BP 132/76
[2020-09-27 04:53] LABS: ABSOLUTE LYMPHOCYTES 0.7 thou/uL (0.8-5.3); ABSOLUTE MONOCYTES 0.4 thou/uL (0.0-1.2); ABSOLUTE NEUTROPHILS 7.3 thou/uL (1.6-8.1); BASOPHILS 0.2 %; EOSINOPHILS 0.2 %; HEMATOCRIT 34.1 % (37.0-47.0); HEMOGLOBIN 11.2 gm/dL (12.0-15.0); LYMPHOCYTES 8.3 %; MCH 30.9 pg (26.0-34.0); MCHC 32.9 g/dL (28.0-37.0); MCV 93.7 fL (80.0-100.0); MONOCYTES 4.2 %; MPV 8.5 fl. (7.2-11.1); NUCLEATED RBCS 0 /100WBC; PLATELET COUNT* 237 thou/uL (150-400); POLYS 87.1 %; RBC 3.64 mil/uL (4.20-5.00); RDW-CV 15.9 % (10.5-14.5); WBC 8.4 thou/uL (4.0-11.0)
[2020-09-27 05:08] LABS: ALBUMIN 2.7 g/dL (3.4-5.0); CALCIUM 11.4 mg/dL (8.5-10.1); CREATININE 1.9 mg/dL (0.6-1.3); POTASSIUM 4.1 mmol/L (3.5-5.1); TOTAL BILIRUBIN 0.5 mg/dL (<0.1-1.0); TOTAL PROTEIN 6.6 g/dL (6.4-8.2)
--- NOTE | 2020-09-27 07:42 | NUR ---
ASSUMED CARE OF PT AFTER REPORT AT 1930. PT A&OX4. VSS. PHYSICAL ASSESSMENT COMPLETED AND CHARTED. PT ON RA. PT TRACING SB ON TELE. PT UPSTANDY TO RESTROOM. PT WITH ILEOSTOMY BAG. PT WITH FISTULA/DRAIN ON RIGHT BUTTOCK-CHANGE OF DRESSING DONE. PT COMPLAINED OF BACK PAIN-MED GIVEN PER JUN. PT ABLE TO SLEEP WELL ON BED. FALL PRECAUTIONS IN PLACE. CALL LIGHT WITHIN REACH.
[2020-09-27 08:38] VITALS: BP 119/73
[2020-09-27 12:00] VITALS: BP 131/71
--- NOTE | 2020-09-27 13:42 | NUR ---
PHYSICIAN INFORMS OF PLAN FOR THE PT TO D/C HOME TODAY WITH SELF-CARE. NO CM D/C PLANNING NEEDS ANTICIPATED. CM WILL REMAIN AVAILABLE TO ASSIST AND FOLLOW NEEDED.
[2020-09-27 13:46] VITALS: BP 119/73
--- NOTE | 2020-09-27 16:21 | NUR ---
Reviewed discharge teaching with pt; verbalized understanding. monitor and storage bin tender and IV dc'd. Pt about to be discharge from unit per WC; sister picking her up.
[2020-09-27 21:06] LABS: URINE PROTEIN (MG/DL) 22.9 mg/dL (Not Estab.)
[2020-09-27 21:06] LABS: GLOBULIN TOTAL 3.3 g/dL (2.2-3.9); M-SPIKE Not Observed g/dL (Not Observed)
--- NOTE | 2020-10-01 10:08 | PATH ---
[address] [address] PATHOLOGY RPT PROCEDURE Name: OFFICERYAIMA Room: [address] IN .R.#: [id number] Admission: 09/22/20 Date of : 59 Discharge: 09/27/20 Report #: [id number] Path Case #: [id number] L[facility] Accession Number: [id number] . 01 Material submitted: . bone - T12 BONE LESION . 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 - Please see comment. (JACQUELINE:khari; 09/29/2020) MBR 09/30/2020 1256 Local . 02 Comment: Biopsy of the T12 lesion shows a minute focus of metastatic carcinoma. The patient's history of remote rectal cancer and current breast mass, with corresponding adenopathy is noted. The tumor immunophenotype would be compatible with a breast primary, given the expression of CK7, CAPO-3 and ER. The tumor also expresses the neuroendocrine markers synaptophysin and CD56. Typical markers of lower gi and lung are not expressed. Neuroendocrine carcinoma can arise primarily within the breast, and some studies indicate it often behaves aggressively. . The case is discussed with Dr. Zuniga and Dr. Llamas on 09/29/2020. . The case is seen in co-review with Dr. Abad Dalton on 09/30/2020, and she agrees with the above diagnosis. . . . 02 Electronically signed: . Aaron Zuniga MD, Pathologist NPI- [id number] . 01 Gross description: . The specimen is received in formalin, labeled "Yaima Officer". No source is listed on the container. The source is listed on the requisition as, "T12 bone lesion". Received is blood coagulum measuring 0.7 x 0.5 x 0.1 cm in aggregate dimensions admixed with a single fragment of light moody bone measuring 0.2 x 0.2 x 0.1 cm. The specimen is filtered and entirely submitted in cassette A1, following light decalcification. (CAA; 09/27/2020) QAC/QAC 09/27/2020 1350 Local . 02 Microscopic: . Immunohistochemical stain results (properly controlled): . [place] [address] PATHOLOGY RPT PROCEDURE Name: OFFICERYAIMA Room: [address] IN .R.#: [id number] Admission: 09/22/20 Date of : 59 Discharge: 09/27/20 Report #: [id number] Path Case #: [id number] AE1/AE3 - malignant cells positive cytoplasmic staining. CK7 - malignant cell positive cytoplasmic staining. GATA3 -nucelar staining of malignant cells ER - nuclear staining of malignant cells Synaptophysin - malignant cells positive cytoplasmic staining. CD56 - rare cells positive. TTF-1 - negative. CDX2 - negative. . (MLK:khari; 09/29/2020) . 02 Pathologist provided ICD-10: C79.51 . 02 CPT . 922976, [id number], K96050, X35095 Specimen Comment: A courtesy copy of this report has been sent to [phone], [phone] Specimen Comment: [id number] Specimen Comment: Report sent to / DR STREET Specimen Comment: A duplicate report has been generated due to demographic updates. Performed at: 01 [facility] [address] [facility] [address], [place] [address] MD Abad Dalton MD Phone: [phone] Performed at: 02 [facility] Gnenaro Tao, BERENICE Zhou [id number] MD Cisco White MD Phone: [phone]
== END 2020-09-27 16:39 | disposition home or self-care (01) | DRG 823 ==
LOC: M.ERS 13:54 → M.2W 15:51 → M.TBA-ER 15:51 → M.2W 17:00
PROVIDERS: Internal Medicine; Internal Medicine Hematology & Oncology; Internal Medicine Nephrology; Nurse Practitioner Family; Radiology Vascular & Interventional Radiology; ADMIT Internal Medicine; ATTEND Internal Medicine
PROC: 0PB43ZX Excision of Thoracic Vertebra, Percutaneous Approach, Diagnostic (ICD-10-PCS; principal; 2020-09-24)
DX: C90.00 Multiple myeloma not having achieved remission (principal); N17.0 Acute kidney failure with tubular necrosis; C79.51 Secondary malignant neoplasm of bone; C78.7 Secondary malignant neoplasm of liver and intrahepatic bile duct; C79.81 Secondary malignant neoplasm of breast; E83.52 Hypercalcemia; N18.31 Chronic kidney disease, stage 3a; E88.09 Other disorders of plasma-protein metabolism, not elsewhere classified; E87.6 Hypokalemia; Z20.822 Contact with and (suspected) exposure to COVID-19; Z87.891 Personal history of nicotine dependence; Z93.3 Colostomy status; Z85.048 Personal history of other malignant neoplasm of rectum, rectosigmoid junction, and anus; Z93.2 Ileostomy status; Z86.718 Personal history of other venous thrombosis and embolism; Z90.710 Acquired absence of both cervix and uterus; Z79.899 Other long term (current) drug therapy; Z88.1 Allergy status to other antibiotic agents; Z88.8 Allergy status to other drugs, medicaments and biological substances

== ENCOUNTER 2020-10-02 07:15 | Emergency (ER) | payer OTHER ==
[~2020-10-02] VITALS: Ht 162.6 cm; Wt 89.4 kg
[~2020-10-02 07:15] MED LIST changes: +DEXAMETHASONE 44 M1 PO; +LASIX 20 MG TAB20 MG PO; +MELATONIN5 MG PO; +MIRALAX17 GM PO; +OXYCODONE HCL 55 MG PO; +PAIN RELIEVER500 MG PO; +ZOFRAN4 MG PO
[2020-10-02 08:09] LABS: URINE BLOOD NEGATIVE (Negative); URINE CLARITY CLEAR; URINE COLOR YELLOW; URINE GLUCOSE-RANDOM NEGATIVE (Negative); URINE KETONES TRACE (Negative); URINE LEUKOCYTES NEGATIVE (Negative); URINE NITRITE NEGATIVE (Negative); URINE PROTEIN 1+ (Negative); URINE SPECIFIC GRAVITY 1.025 (1.005-1.030); URINE UROBILINOGEN 0.2 E.U./dl (0.2-1.0)
[2020-10-02 08:10] LABS: ICTOTEST (BILI CONFIRMATORY) Negative (Negative); URINE BILIRUBIN 1+ (Negative)
[2020-10-02 08:15] LABS: HEMATOCRIT 36.4 % (37.0-47.0); HEMOGLOBIN 12.2 gm/dL (12.0-15.0); MCH 31.1 pg (26.0-34.0); MCHC 33.6 g/dL (28.0-37.0); MCV 92.7 fL (80.0-100.0); MPV 8.4 fl. (7.2-11.1); RBC 3.93 mil/uL (4.20-5.00); RDW-CV 17.3 % (10.5-14.5); WBC 9.7 thou/uL (4.0-11.0)
[2020-10-02 08:26] LABS: CALCIUM 9.7 mg/dL (8.5-10.1); CREATININE 1.8 mg/dL (0.6-1.3)
[2020-10-02 08:27] LABS: POTASSIUM 5.4 mmol/L (3.5-5.1)
[2020-10-02 08:31] LABS: ALBUMIN 2.7 g/dL (3.4-5.0); TOTAL BILIRUBIN 0.7 mg/dL (<0.1-1.0); TOTAL PROTEIN 6.9 g/dL (6.4-8.2)
[2020-10-02 10:57] LABS: CREATININE 1.7 mg/dL (0.6-1.3)
[2020-10-02 10:58] LABS: POTASSIUM 3.5 mmol/L (3.5-5.1)
[2020-10-02] MEDS ORDERED: OXYCODONE HCL 55 MG PO (12:19)
[2020-10-02 12:51] VITALS: BP 143/65
== END 2020-10-02 12:52 | disposition home or self-care (01) ==
LOC: M.ERS 07:15
PROVIDERS: Emergency Medicine
DX: E86.0 Dehydration (principal); M54.9 Dorsalgia, unspecified; Z85.048 Personal history of other malignant neoplasm of rectum, rectosigmoid junction, and anus; Z86.718 Personal history of other venous thrombosis and embolism; Z90.89 Acquired absence of other organs; Z90.710 Acquired absence of both cervix and uterus; Z85.05 Personal history of malignant neoplasm of liver; Z88.8 Allergy status to other drugs, medicaments and biological substances

== ENCOUNTER 2020-10-06 06:51 | Emergency (ER) | payer OTHER ==
[~2020-10-06] VITALS: Ht 162.6 cm; Wt 80.7 kg
[2020-10-06 07:40] LABS: HEMATOCRIT 35.7 % (37.0-47.0); HEMOGLOBIN 12.2 gm/dL (12.0-15.0); MCH 31.5 pg (26.0-34.0); MCHC 34.2 g/dL (28.0-37.0); MCV 92.2 fL (80.0-100.0); MPV 8.4 fl. (7.2-11.1); NUCLEATED RBCS 0 /100WBC; PLATELET COUNT* 272 thou/uL (150-400); RBC 3.87 mil/uL (4.20-5.00); RDW-CV 17.7 % (10.5-14.5); WBC 5.6 thou/uL (4.0-11.0)
[2020-10-06 07:50] LABS: CALCIUM 8.1 mg/dL (8.5-10.1); CREATININE 1.8 mg/dL (0.6-1.3); POTASSIUM 4.2 mmol/L (3.5-5.1)
[2020-10-06 07:54] LABS: ALBUMIN 2.9 g/dL (3.4-5.0); TOTAL BILIRUBIN 0.7 mg/dL (<0.1-1.0); TOTAL PROTEIN 6.6 g/dL (6.4-8.2)
[2020-10-06] MEDS ORDERED: PROTONIX40 M4 PO (08:27)
[2020-10-06] MEDS ORDERED: ZOFRAN ODT4 MG DISSOLVE (08:27)
[2020-10-06] MEDS ORDERED: PERCOCET PO (08:27)
[2020-10-06 08:39] LABS: ABSOLUTE LYMPHOCYTES 0.7 thou/uL (0.8-5.3); ABSOLUTE NEUTROPHILS 4.9 thou/uL (1.6-8.1); ATYPICAL LYMPHS 1 %; PLATELET ESTIMATE ADEQUATE
[2020-10-06 08:58] VITALS: BP 144/73
--- NOTE | 2020-10-06 16:08 | EKG ---
[place] [address] ELECTROCARDIOGRAM REPORT Name: OFFICERMARTIN Room: [facility]#: [id number] Admission: 10/06/20 Attend Phys: Discharge: 10/06/20 Date of : 59 Date of Service: 10/06/20 0752 Report #: [id number] THIS REPORT FOR: //name// [facility] ED Test Date: 2020-10-06 Test Time: 07:52:53 Pat Name: MARTIN OFFICER Department: Room: Gender: F Advertising Consultant: CD : 1955 Requested By: Seth Lawler Order Number: [id number] MD: Elbert Cheung Measurements Intervals [place] Rate: 45 P: -18 CT: 142 QRS: -14 QRSD: 91 T: 6 QT: 489 QTc: 424 Interpretive Statements Sinus bradycardia Low voltage, precordial leads Compared to ECG 09/22/2020 15:48:35 Sinus rhythm no longer present Q waves no longer present Electronically Signed On 10-06-2020 16:07:56 CDT by Elbert Cheung [email or web address] <ELECTRONICALLY SIGNED> By: Elbert Cheung MD, [facility] 10/06/20 1607 0752 0752 Elbert Cheung MD, [facility] /EPI
== END 2020-10-06 08:59 | disposition home or self-care (01) ==
LOC: M.ERS 06:51
PROVIDERS: Family Medicine
DX: R11.2 Nausea with vomiting, unspecified (principal); Z88.8 Allergy status to other drugs, medicaments and biological substances; Z88.1 Allergy status to other antibiotic agents; Z79.899 Other long term (current) drug therapy; Z85.048 Personal history of other malignant neoplasm of rectum, rectosigmoid junction, and anus; Z86.718 Personal history of other venous thrombosis and embolism; Z90.710 Acquired absence of both cervix and uterus

== ENCOUNTER 2020-10-07 11:07 | Inpatient (IN) | payer OTHER ==
[~2020-10-07] VITALS: Ht 162.6 cm; Wt 107.3 kg
--- NOTE | ~2020-10-07 | CON ---
[address] [address] CONSULTATION Name: OFFICERMARTIN Room: [address] IN M.R.#: [id number] Admission: 10/07/20 Attend Phys: Yasmine Tracy MD Discharge: Date of : 59 Report #: [id number] THIS REPORT FOR: cc: Sammie Rodriguez Linda J. DO Namin, Farid M. MD ~ DOC #: [id number] cc: Arturo Erickson MD Johnna L. Bodenstab, STAIN WIPER DATE OF CONSULTATION: 10/08/2020 Please note at the time of this dictation, the patient was seen and physically examined by myself. REASON FOR CONSULTATION: Intractable nausea and vomiting and weight loss of 23 pounds since the middle of 09/2020. HISTORY OF PRESENT ILLNESS: This is a pleasant 65-year-old female who presented to the Emergency Room who had been here a couple of days prior too for intractable back pain and nausea and vomiting. She states she has been unable to keep anything down for quite some time now and now she has just dry heaves. She is having still a little bit of output out of her ostomy, which is more just liquid and kind of greenish in color. She denies any bright red blood or any melena from her stool in her ostomy. She also denies any bright red blood or any coffee-ground emesis from her vomiting. The patient states back in 08/2020, she fell and did something to her ankle and when she fell later she found that she had cracked three ribs and given that timeframe nothing was helping with her pain, so she was taking a great deal of ibuprofen. She knew that she should not be doing that due to her only having one kidney, but she had nothing else to take except for the Tylenol. She then presented here in 09/2020 when she was having the similar problem and she was found out to have a breast cancer that was metastatic with abdominal and pelvic metastasis as well as bone and now liver. In the last several days prior to this admission, she had been to the ER to get fluids and then sent back home. This time she stated that she needed to stay, get fluids and figure out why she is unable to eat or drink anything at this time. The patient states that she does over the past month has been having a little bit of acid reflux and has noticed a little bit of discomfort or difficulty in swallowing, but nothing significant causing her to vomit anything up. The patient has lost 23 pounds since her admission in 09/2020. ALLERGIES: BLOOD THINNER, PROMETHAZINE AND TIGECYCLINE. PAST MEDICAL HISTORY: The patient had rectal cancer diagnosed in 2009 that showed a 10 cm rectal mass. She then saw Dr. Faith [place] [address] CONSULTATION Name: OFFICERMARTIN Room: [address] IN [facility]#: [id number] Admission: 10/07/20 Attend Phys: Yasmine Tracy MD Discharge: Date of : 59 Report #: [id number] done and then revision again and had an ileostomy placed due to complications. She has also recently been diagnosed with a breast cancer with mets to the lymph, liver and getting ready to undergo evaluation with Dr. Aquino. History of a DVT and had an IVC filter placed. PAST SURGICAL HISTORY: Tonsillectomy, hysterectomy. She has had pelvic abscesses, fistula in her buttocks, recurrent pelvic abscesses back in 2018, issues with her stump. FAMILY HISTORY: Negative for any GI or female cancers. SOCIAL HISTORY: Alcohol only on special occasions. Former smoker and denies any illegal drug use. REVIEW OF SYSTEMS: Twelve point review of systems is essentially negative except what is mentioned in the HPI. PHYSICAL EXAMINATION: VITAL SIGNS: Temperature is 36.4, pulse 56, respirations 20, blood pressure 116/75. HEART: Regular rate and rhythm. LUNGS: Clear. ABDOMEN: Soft, positive bowel sounds in all 4 quadrants with a little bit of epigastric tenderness noted to palpation and an ileostomy noted in the right. LABORATORY DATA: Hemoglobin is 12.4, white count is 11, platelets are 295. GFR is 30. Her BUN is 26, creatinine 1.7, total bilirubin is 0.4, alkaline phosphatase is 426, ALT is 67, AST is 88. DIAGNOSTIC DATA: CT scan recently done shows widespread hypodense metastatic lesions likely from the breast. IMPRESSION: 1. Nausea and vomiting. 2. Weight loss, 23 pounds since the middle of 09/2020. 3. Significant NSAID use from rib fractures from 2 months ago. 4. Recent diagnosis of breast cancer with mets to liver, lymph and abdomen. 5. History of rectal cancer back in 2009, status post ileostomy in 2010. PLAN: 1. EGD with Dr. Jones today. 2. Continue IV fluids. 3. Continue with her scopolamine patch, Zofran, and pantoprazole. 4. Further recommendations to be made after [place] [address] CONSULTATION Name: MARTIN LEYVA Room: [address] IN .R.#: [id number] Admission: 10/07/20 Attend Phys: Yasmine Tracy MD Discharge: Date of : 59 Report #: [id number] Thank you for allowing us to participate in this patient's care. Please do not hesitate to call with any questions regarding this consult. MD RM Yoo/MIGEL/NIKO By: [id number] Jones MD /matt
[~2020-10-07 11:07] MED LIST changes: +PERCOCET PO; +PROTONIX40 M4 PO; +ZOFRAN ODT4 MG DISSOLVE
[2020-10-07 11:10] VITALS: BP 134/89
[2020-10-07 11:50] LABS: ABSOLUTE BASOPHILS 0.1 thou/uL (0.0-0.2); ABSOLUTE EOSINOPHILS 0.1 thou/uL (0.0-0.7); ABSOLUTE LYMPHOCYTES 1.3 thou/uL (0.8-5.3); ABSOLUTE MONOCYTES 0.9 thou/uL (0.0-1.2); ABSOLUTE NEUTROPHILS 8.9 thou/uL (1.6-8.1); BASOPHILS 0.7 %; EOSINOPHILS 1.2 %; HEMATOCRIT 38.2 % (37.0-47.0); HEMOGLOBIN 12.7 gm/dL (12.0-15.0); LYMPHOCYTES 11.2 %; MCH 30.8 pg (26.0-34.0); MCHC 33.3 g/dL (28.0-37.0); MCV 92.6 fL (80.0-100.0); MPV 8.1 fl. (7.2-11.1); NUCLEATED RBCS 0 /100WBC; POLYS 78.9 %; RBC 4.13 mil/uL (4.20-5.00); RDW-CV 17.9 % (10.5-14.5); WBC 11.2 thou/uL (4.0-11.0)
[2020-10-07 11:55] LABS: URINE BLOOD NEGATIVE (Negative); URINE CLARITY CLEAR; URINE COLOR YELLOW; URINE GLUCOSE-RANDOM NEGATIVE (Negative); URINE KETONES TRACE (Negative); URINE LEUKOCYTES-REFLEX NEGATIVE (Negative); URINE NITRITE-REFLEX NEGATIVE (Negative); URINE PROTEIN 1+ (Negative); URINE SPECIFIC GRAVITY 1.025 (1.005-1.030); URINE UROBILINOGEN 0.2 E.U./dl (0.2-1.0)
[2020-10-07 11:55] LABS: PLATELET COUNT* 350 thou/uL (150-400)
[2020-10-07 11:57] LABS: URINE BILIRUBIN 1+ (Negative)
[2020-10-07 11:58] LABS: ICTOTEST (BILI CONFIRMATORY) Negative (Negative)
[2020-10-07 12:17] LABS: CALCIUM 8.2 mg/dL (8.5-10.1); CREATININE 1.9 mg/dL (0.6-1.3); POTASSIUM 3.4 mmol/L (3.5-5.1)
[2020-10-07 12:21] LABS: ALBUMIN 3.1 g/dL (3.4-5.0); TOTAL BILIRUBIN 0.8 mg/dL (<0.1-1.0); TOTAL PROTEIN 6.8 g/dL (6.4-8.2)
--- NOTE | 2020-10-07 14:17 | EKG ---
[place] [address] ELECTROCARDIOGRAM REPORT Name: OFFICERMARTIN Room: [place] [address] ADM IN .R.#: [id number] Admission: 10/07/20 Attend Phys: Yasmine Tracy, Discharge: Date of : 59 Date of Service: 10/07/20 1130 Report #: [id number] THIS REPORT FOR: //name// [facility] ED Test Date: 2020-10-07 Test Time: 11:30:58 Pat Name: MARTIN OFFICER Department: Room: [facility] Gender: F Network Support Administrator: CAITLIN : 1955 Requested By: Toño Knott Order Number: [id number] MD: Elbert Cheung Measurements Intervals [place] Rate: 57 P: -33 KS: 151 QRS: -11 QRSD: 84 T: 6 QT: 414 QTc: 403 Interpretive Statements Sinus rhythm septal infarct, age indeterminate Compared to ECG 10/06/2020 07:52:53 Myocardial infarct finding now present Sinus bradycardia no longer present Electronically Signed On 10-07-2020 14:16:52 CDT by Elbert Cheung [email or web address] <ELECTRONICALLY SIGNED> By: Elbert Cheung MD, [facility] 10/07/20 1416 1130 1130 Elbert Cheung MD, [facility] /EPI
[2020-10-07 14:50] VITALS: BP 130/71
[2020-10-07 15:00] VITALS: BP 147/76
[2020-10-07 20:30] VITALS: BP 117/69
[2020-10-08 02:00] VITALS: BP 116/75
[2020-10-08 04:18] LABS: HEMATOCRIT 37.2 % (37.0-47.0); HEMOGLOBIN 12.4 gm/dL (12.0-15.0); MCH 31.1 pg (26.0-34.0); MCHC 33.3 g/dL (28.0-37.0); MCV 93.5 fL (80.0-100.0); MPV 8.7 fl. (7.2-11.1); RBC 3.98 mil/uL (4.20-5.00); RDW-CV 18.2 % (10.5-14.5)
[2020-10-08 05:02] LABS: CALCIUM 7.9 mg/dL (8.5-10.1); CREATININE 1.7 mg/dL (0.6-1.3); MAGNESIUM 1.9 mg/dL (1.8-2.4); POTASSIUM 3.8 mmol/L (3.5-5.1); TOTAL BILIRUBIN 0.9 mg/dL (<0.1-1.0); TOTAL PROTEIN 6.7 g/dL (6.4-8.2)
[2020-10-08 08:00] VITALS: BP 126/87
[2020-10-08 15:23] VITALS: BP 139/79
[2020-10-08 21:05] VITALS: BP 118/72
[2020-10-09 02:06] LABS: HEPATITIS B SURFACE AG Negative (Negative)
[2020-10-09 08:03] VITALS: BP 126/80
[2020-10-09 10:01] LABS: HEMATOCRIT 36.6 % (37.0-47.0); HEMOGLOBIN 12.1 gm/dL (12.0-15.0); MCH 30.8 pg (26.0-34.0); MCHC 33.1 g/dL (28.0-37.0); MCV 93.1 fL (80.0-100.0); MPV 8.3 fl. (7.2-11.1); RBC 3.93 mil/uL (4.20-5.00); RDW-CV 18.7 % (10.5-14.5); WBC 8.9 thou/uL (4.0-11.0)
[2020-10-09 10:23] LABS: ALBUMIN 3.1 g/dL (3.4-5.0); CALCIUM 7.3 mg/dL (8.5-10.1); CREATININE 1.9 mg/dL (0.6-1.3); MAGNESIUM 1.8 mg/dL (1.8-2.4); POTASSIUM 4.1 mmol/L (3.5-5.1); TOTAL BILIRUBIN 0.9 mg/dL (<0.1-1.0)
[2020-10-09 15:45] VITALS: BP 125/79
[2020-10-09 19:58] VITALS: BP 126/73
[2020-10-10 07:15] VITALS: BP 122/75
[2020-10-10 07:31] LABS: ALBUMIN 3.1 g/dL (3.4-5.0); CALCIUM 7.1 mg/dL (8.5-10.1); CREATININE 2.2 mg/dL (0.6-1.3); POTASSIUM 4.9 mmol/L (3.5-5.1); TOTAL BILIRUBIN 0.8 mg/dL (<0.1-1.0); TOTAL PROTEIN 6.9 g/dL (6.4-8.2)
[2020-10-10 13:45] VITALS: BP 107/73
[2020-10-10 16:00] VITALS: BP 121/78
[2020-10-10 20:00] VITALS: BP 128/88
[2020-10-11] VITALS: BP 130/81
[2020-10-11 02:42] LABS: URINE BILIRUBIN NEGATIVE (Negative); URINE BLOOD 2+ (Negative); URINE CLARITY CLEAR; URINE COLOR DARK YELLOW; URINE GLUCOSE-RANDOM NEGATIVE (Negative); URINE KETONES NEGATIVE (Negative); URINE LEUKOCYTES-REFLEX NEGATIVE (Negative); URINE NITRITE-REFLEX NEGATIVE (Negative); URINE PROTEIN 1+ (Negative); URINE SPECIFIC GRAVITY 1.025 (1.005-1.030); URINE UROBILINOGEN 0.2 E.U./dl (0.2-1.0)
[2020-10-11 03:53] LABS: SQUAMOUS >10 Many /LPF (0-3)
[2020-10-11 03:54] LABS: HYALINE CASTS 0-3 Few /LPF (None Seen)
[2020-10-11 03:55] LABS: URINE RBC 3-10 Few /HPF (0-2); URINE WBC-REFLEX 0-5 Rare /HPF (0-5)
[2020-10-11 03:57] LABS: BACTERIA-REFLEX >30 Many /HPF (None Seen); CRYSTALS None Seen /LPF (None Seen); RENAL EPITHELIAL CELLS 0-3 Few /LPF (None Seen)
[2020-10-11 04:00] VITALS: BP 128/79
[2020-10-11 04:14] LABS: HEMATOCRIT 35.8 % (37.0-47.0); HEMOGLOBIN 11.8 gm/dL (12.0-15.0); MCHC 32.9 g/dL (28.0-37.0); MCV 94.1 fL (80.0-100.0); MPV 8.4 fl. (7.2-11.1); RBC 3.81 mil/uL (4.20-5.00); RDW-CV 18.6 % (10.5-14.5); WBC 17.8 thou/uL (4.0-11.0)
[2020-10-11 04:40] LABS: CALCIUM 6.8 mg/dL (8.5-10.1); CREATININE 2.8 mg/dL (0.6-1.3); POTASSIUM 5.4 mmol/L (3.5-5.1)
[2020-10-11 08:00] VITALS: BP 147/84
[2020-10-11 15:03] VITALS: BP 122/81
[2020-10-11 19:19] VITALS: BP 113/57
[2020-10-11 20:00] VITALS: BP 149/65
[2020-10-12] VITALS: BP 162/85
[2020-10-12 04:00] VITALS: BP 111/77
[2020-10-12 04:36] LABS: HEMATOCRIT 32.6 % (37.0-47.0); HEMOGLOBIN 10.8 gm/dL (12.0-15.0); MCH 30.9 pg (26.0-34.0); MCV 93.5 fL (80.0-100.0); MPV 8.6 fl. (7.2-11.1); RBC 3.48 mil/uL (4.20-5.00); RDW-CV 18.3 % (10.5-14.5); WBC 16.3 thou/uL (4.0-11.0)
[2020-10-12 04:47] LABS: ALBUMIN 2.8 g/dL (3.4-5.0); CALCIUM 6.2 mg/dL (8.5-10.1); CREATININE 2.5 mg/dL (0.6-1.3); POTASSIUM 4.8 mmol/L (3.5-5.1); TOTAL BILIRUBIN 0.7 mg/dL (<0.1-1.0); TOTAL PROTEIN 6.3 g/dL (6.4-8.2)
[2020-10-12 08:00] VITALS: BP 113/74
--- NOTE | 2020-10-12 14:06 | PATH ---
[address] [address] PATHOLOGY RPT PROCEDURE Name: OFFICERMARTIN Room: [address] IN .R.#: [id number] Admission: 10/07/20 Date of : 59 Discharge: Report #: [id number] Path Case #: [id number] [facility] Accession Number: [id number] . 01 Material submitted: . PART A: ANTRUM - ANTRAL ULCER BIOPSY PART B: gastrointestinal site - GASTRIC BIOPSY: GASTRITIS PART C: esophagus - ESOPHAGEAL BIOPSY: RULE OUT JASMYN . 01 Clinical history: . EGD IN OR . 02 Diagnosis: A. Antral biopsy: - Mild chronic antral gastritis typical of reactive gastropathy (chemical gastritis), negative for Helicobacter pylori organisms, granulomas and dysplasia. See comment. . B. Gastric biopsy: - Mild nonspecific chronic gastritis, negative for Helicobacter pylori organisms and dysplasia. . C. Esophageal biopsy: - Benign glandular/columnar mucosa and predominantly benign esophageal mucosa with abundant fungal elements characteristic of Jasmyn species within squamous epithelium characteristic of Jasmyn esophagitis, negative for goblet cells/diagnostic Yepez's metaplasia and dysplasia. (LYNNE:[facility]; 10/12/2020) QTP 10/12/2020 1207 Local . 02 Comment: In the antral biopsy ulcer (A) a minute strip of benign squamous epithelium of unknown origin is noted. (LYNNE:[facility]; 10/12/2020) . Special stains on A and B: H. pylori immuno . 02 Electronically signed: . Cisco White MD, Pathologist NPI- [id number] . 01 Gross description: . A. Received in formalin (partially leaked) labeled "Suzanna Pierson, antral ulcer biopsy". Received are 4 moody-brown soft tissue fragments ranging from 0.1-0.4. The specimen is entirely submitted in cassette A1. . B. Received in formalin labeled "Suzanna Pierson, gastric biopsy gastritis". Received are 3 moody-brown soft [place] [address] PATHOLOGY RPT PROCEDURE Name: MARTIN PIERSON Room: [address] IN [facility].#: [id number] Admission: 10/07/20 Date of : 59 Discharge: Report #: [id number] Path Case #: [id number] 0.2-0.3 cm. The specimen is entirely submitted in cassette B1. . C. Received in formalin labeled "Officer Suzanna, esophageal biopsy, rule Jasmyn". Received are multiple bates-moody soft tissue fragments ranging from 0.1-0.3 cm. The specimen is entirely submitted in cassette C1.([facility]; 10/08/2020) J/J 10/12/2020 1203 Local . 02 Pathologist provided ICD-10: K29.50, R11.10 . 02 CPT . 786845, 526456, 264156, K97681 Specimen Comment: A courtesy copy of this report has been sent to [phone] Specimen Comment: [phone], Specimen Comment: Report sent to , DR ALMAGUER / DR STREET Performed at: 01 [facility] [address], [place] [id number] MD Abad Dalton MD Phone: [phone] Performed at: [address] [address] [address], [place] [id number] MD Cisco White MD Phone: [phone]
[2020-10-12 14:40] VITALS: BP 114/77
[2020-10-12 16:00] VITALS: BP 109/65
[2020-10-12 20:00] VITALS: BP 103/69
[2020-10-13] VITALS (7 sets, daily range): BP systolic 100–152; BP diastolic 66–79
[2020-10-13 04:53] LABS: CALCIUM 6.2 mg/dL (8.5-10.1); CREATININE 2.1 mg/dL (0.6-1.3); MAGNESIUM 1.7 mg/dL (1.8-2.4); POTASSIUM 5.1 mmol/L (3.5-5.1)
[2020-10-13 04:58] LABS: HEMATOCRIT 28.7 % (37.0-47.0); HEMOGLOBIN 9.5 gm/dL (12.0-15.0); MCH 30.8 pg (26.0-34.0); MCHC 33.3 g/dL (28.0-37.0); MCV 92.5 fL (80.0-100.0); MPV 8.8 fl. (7.2-11.1); NUCLEATED RBCS 0 /100WBC; PLATELET COUNT* 153 thou/uL (150-400); WBC 14.2 thou/uL (4.0-11.0)
[2020-10-13 06:00] LABS: ABSOLUTE LYMPHOCYTES 1.3 thou/uL (0.8-5.3); ABSOLUTE MONOCYTES 0.3 thou/uL (0.0-1.2); ABSOLUTE NEUTROPHILS 12.6 thou/uL (1.6-8.1); ANISOCYTOSIS 1+; PLATELET ESTIMATE ADEQUATE; POIKILOCYTOSIS 1+
--- NOTE | 2020-10-13 08:59 | CON ---
[address] [address] CONSULTATION Name: OFFICERMARTIN Muriel Room: [address] IN M.R.#: [id number] Admission: 10/07/20 Attend Phys: Yasmine Tracy MD Discharge: Date of : 59 Report #: [id number] THIS REPORT FOR: cc: Sammie Rodriguez Linda J. DO Vasudeva, Amita MD ~ DOC #: [id number] Rina Mccarty MD DATE OF CONSULTATION: 10/11/2020 NEPHROLOGY CONSULTATION CONSULTING PHYSICIAN: Dr. Tracy. REASON FOR NEPHROLOGY CONSULTATION: Acute kidney injury on chronic kidney disease. REASON FOR ADMISSION: Intractable nausea and vomiting. HISTORY OF PRESENT ILLNESS: The patient is a 65-year-old female who was admitted with intractable nausea and vomiting. She has been admitted multiple times because of the same complaint. On 09/22/2020, she came to [facility] with similar complaints and she was diagnosed with metastatic breast cancer at that time with mets to liver, bone and abdomen. Oncology was consulted at this time also to see her and they are focusing on pain control right now and she might be a candidate for systemic chemotherapy pending some studies. The patient takes Lasix at home. She is not using any NSAIDs at home. It looks like her baseline creatinine is 1.8-1.9. She also has a history of nephrectomy in 2011 which happened because she had bleeding from her kidney when she was being anticoagulated for a DVT, which is in the setting of her rectal cancer at that time. They had to coil that kidney and that is how she lost that right kidney. So she came in with a creatinine of 1.9 here and creatinine has gone up to 2.8 today. She reports to me that she has been making urine, but I do not have a documented urine output and her potassium has been rising and she is also developing metabolic acidosis. She has been receiving IV fluids here for the past couple of days, but that is not leading to improvement in kidney function. She was also diagnosed with left leg femoral vein DVT yesterday and started on heparin drip and a PTT this morning was supratherapeutic. She also underwent EGD during this admission, which showed multiple nonbleeding gastric ulcers and esophageal candidiasis and was started on fluconazole for that. She also has possible cholecystitis. Her liver enzymes were elevated and ultrasound shows a possibility of cholecystitis. General Surgery has not seen her yet. She is quite overwhelmed with this new diagnosis of cancer. She is estrogen receptor positive, testing for HER2/katheryn is in progress. Her nausea and vomiting are now getting better and she is able [place] [address] CONSULTATION Name: OFFICERMARTIN Room: [address] IN .R.#: [id number] Admission: 10/07/20 Attend Phys: Yasmine Tracy MD Discharge: Date of : 59 Report #: [id number] ALLERGIES: PROMETHAZINE, TIGECYCLINE, PHENERGAN. REVIEW OF SYSTEMS: As mentioned in history of present illness. She is a bit drowsy, but she is able to wake up and she is completely oriented x 3, generalized weakness, leg swelling, especially more than the left leg. Otherwise, 10-point review of systems are negative. HOME MEDICATIONS: Which include oxycodone, melatonin, Zofran, Protonix, acetaminophen, Lasix 20 mg once a day, MiraLax, gabapentin. PAST MEDICAL AND SURGICAL HISTORY: Which includes colostomy, rectal cancer diagnosed in 2009, ileostomy x 2, has only one kidney nephrectomy due to bleeding and hematoma, DVT, IVC filter, tonsillectomy, hysterectomy, pelvic abscess with hospitalization in 2012, fistula of her buttock with strep infection, recurrent pelvic abscesses, started hyperbaric treatment also in 2018, pelvic boils, colon stump leakage diagnosed 01/2018, left and then diagnosed with breast cancer with mets to liver, abdomen and pelvis as well as bone. FAMILY HISTORY: Noncontributory. SOCIAL HISTORY: She is a former smoker. She uses alcohol on special occasions. No illicit drug use. PHYSICAL EXAMINATION: VITAL SIGNS: Blood pressure is 147/84, her pulse rate was 63, respiratory rate was 18, temperature was 36.3, pulse ox is 96%. She was on room air. GENERAL: She is awake and alert and oriented x 3. HEAD AND EYES: Atraumatic, normocephalic. Conjunctivae are normal. EARS, NOSE AND THROAT: Normal. Mucous membranes are moist. NECK: There is no JVD. LUNGS: Bilaterally diminished breath sounds anteriorly, but no crackles heard. CARDIAC: S1, S2 normal. No murmurs. ABDOMEN: Soft, nondistended, nontender. She has an ileostomy present and intact with stool in it. EXTREMITIES: There is nonpitting edema bilateral lower extremity, more in the left leg. NEUROLOGIC: Neurological function grossly intact. PSYCHIATRIC: Psych meraz, she seems depressed. LABORATORY DATA: WBC 17.8, hemoglobin is 11.8, platelet count is 199. Sodium is 130, potassium is 5.4, chloride is 100, CO2 is 13, BUN is 43 and creatinine is 2.8. Other labs were reviewed. Her AST was 101, ALT was 86, alkaline [facility] [address] [facility] [place] [place] [address] CONSULTATION Name: OFFICERMARTIN Room: [address] IN M.R.#: [id number] Admission: 10/07/20 Attend Phys: Yasmine Tracy MD Discharge: Date of : 59 Report #: [id number] phosphatase 473. IMAGING: Venous Doppler study, renal ultrasound and abdominal ultrasound were reviewed. ASSESSMENT AND PLAN: 1. Acute kidney injury on top of chronic kidney disease stage 4, baseline creatinine more recently has been 1.8-1.9 and her creatinine was 1.9 when she came to the hospital and now it is at 2.8. Creatinine is not responding to fluids. This is most likely ischemic acute tubular necrosis could be because of relative hypotension and vomiting causing dehydration could have contributed. I am not sure how much urine she is making. Urine output will be recorded. Bladder scan will be checked. Renal ultrasound showed solitary left kidney. She is status post right nephrectomy in 2011. There is no hydronephrosis. UA showed evidence of renal epithelial cells, 3-10 rbc's per high power field and it was a contaminated specimen. 2. Intractable pain in her spine. Pain control as per primary team. 3. Intractable nausea and vomiting, which is getting better now. It is in the setting of metastatic breast cancer. 4. Anion gap metabolic acidosis. 5. Hyperkalemia because of metabolic acidosis and worsening kidney function. 6. Hyponatremia because of worsening kidney function. 7. History of rectal cancer and ileostomy. 8. Candidal esophagitis, on fluconazole for that, diagnosed this admission. 9. History of deep venous thrombosis, status post IVC filter. 10. New left common femoral vein deep venous thrombosis, on heparin drip for that. 11. Severe protein-calorie malnutrition, lost 23 pounds since mid September. 12. Elevated liver related enzymes, possibility of cholecystitis. We will defer to primary team. PLAN: 1. Will change her IV fluids to bicarbonate drip to help with acidosis and hyperkalemia. 2. She is already on a renal diet. 3. Will check a CPK level as well. 4. Check bladder scan to make sure she is not retaining urine and if she is not, put an external catheter so that we can see how much urine she is making. If she is having urinary retention, place a Weiss catheter. 5. Avoid all nephrotoxic agents. 6. This is likely acute tubular necrosis and she might need dialysis during this admission. I discussed that possibility with her and she wants to talk to her family before [place] [address] CONSULTATION Name: OFFICERMARTIN Room: [address] IN M.R.#: [id number] Admission: 10/07/20 Attend Phys: Yasmine Tracy MD Discharge: Date of : 59 Report #: [id number] There is no acute need for dialysis today. Thank you for this consultation. We will follow with you. Discussed with the patient and the patient's nurse in detail. The patient is critically sick and I spent 40 minutes in the critical care, the time spent in chart review, basic orders and care coordination and will follow with you. Check morning labs. Rina Mccarty MD /[facility] [place]ELECTRONICALLY SIGNED> By: Rina Mccarty MD 10/13/20 0859 0834 [id number] Mccarty MD /
[2020-10-14 04:00] VITALS: BP 133/71
[2020-10-14 04:22] LABS: ABSOLUTE LYMPHOCYTES 0.7 thou/uL (0.8-5.3); ABSOLUTE MONOCYTES 1.1 thou/uL (0.0-1.2); ABSOLUTE NEUTROPHILS 13.9 thou/uL (1.6-8.1); BASOPHILS 0.2 %; HEMATOCRIT 27.7 % (37.0-47.0); HEMOGLOBIN 9.2 gm/dL (12.0-15.0); LYMPHOCYTES 4.3 %; MCH 30.8 pg (26.0-34.0); MCHC 33.1 g/dL (28.0-37.0); MCV 93.1 fL (80.0-100.0); MONOCYTES 6.9 %; MPV 8.3 fl. (7.2-11.1); NUCLEATED RBCS 0 /100WBC; PLATELET COUNT* 144 thou/uL (150-400); POLYS 88.6 %; RBC 2.97 mil/uL (4.20-5.00); WBC 15.7 thou/uL (4.0-11.0)
[2020-10-14 04:48] LABS: ALBUMIN 2.6 g/dL (3.4-5.0); CALCIUM 6.1 mg/dL (8.5-10.1); POTASSIUM 5.4 mmol/L (3.5-5.1); TOTAL BILIRUBIN 0.8 mg/dL (<0.1-1.0)
[2020-10-14 07:48] VITALS: BP 115/72
[2020-10-14 12:00] VITALS: BP 134/72
[2020-10-14 16:00] VITALS: BP 123/69
[2020-10-14 20:59] VITALS: BP 124/80
[2020-10-15] VITALS: BP 138/87
[2020-10-15 03:40] VITALS: BP 127/78
[2020-10-15 05:46] LABS: ABSOLUTE BASOPHILS 0.1 thou/uL (0.0-0.2); ABSOLUTE LYMPHOCYTES 0.3 thou/uL (0.8-5.3); ABSOLUTE MONOCYTES 1.3 thou/uL (0.0-1.2); ABSOLUTE NEUTROPHILS 15.6 thou/uL (1.6-8.1); BASOPHILS 0.3 %; HEMATOCRIT 28.6 % (37.0-47.0); HEMOGLOBIN 9.4 gm/dL (12.0-15.0); LYMPHOCYTES 1.9 %; MCH 31.1 pg (26.0-34.0); MCHC 32.8 g/dL (28.0-37.0); MCV 94.7 fL (80.0-100.0); MONOCYTES 7.7 %; MPV 9.1 fl. (7.2-11.1); NUCLEATED RBCS 0 /100WBC; PLATELET COUNT* 167 thou/uL (150-400); POLYS 90.1 %; RBC 3.02 mil/uL (4.20-5.00); RDW-CV 18.3 % (10.5-14.5); WBC 17.3 thou/uL (4.0-11.0)
[2020-10-15 05:49] LABS: CALCIUM 6.5 mg/dL (8.5-10.1); POTASSIUM 5.3 mmol/L (3.5-5.1)
[2020-10-15 06:42] LABS: INR 1.2; PROTIME 12.2 Seconds (9.20-11.50)
[2020-10-15 08:24] VITALS: BP 116/82
[2020-10-15 12:00] VITALS: BP 117/75
[2020-10-15 13:07] LABS: URINE BILIRUBIN NEGATIVE (Negative); URINE BLOOD TRACE (Negative); URINE CLARITY CLEAR; URINE COLOR YELLOW; URINE GLUCOSE-RANDOM NEGATIVE (Negative); URINE KETONES NEGATIVE (Negative); URINE LEUKOCYTES-REFLEX TRACE (Negative); URINE NITRITE-REFLEX NEGATIVE (Negative); URINE PROTEIN NEGATIVE (Negative); URINE UROBILINOGEN 0.2 E.U./dl (0.2-1.0)
[2020-10-15 13:18] LABS: CASTS None Seen /LPF (None Seen); CRYSTALS None Seen /LPF (None Seen); SQUAMOUS 0-3 Few /LPF (0-3); URINE RBC 0-2 Rare /HPF (0-2); URINE WBC-REFLEX 0-5 Rare /HPF (0-5)
[2020-10-15 16:00] VITALS: BP 124/81
[2020-10-15 20:44] VITALS: BP 120/70
[2020-10-16] VITALS: BP 127/82
[2020-10-16 04:26] VITALS: BP 120/76
[2020-10-16 05:17] LABS: ABSOLUTE LYMPHOCYTES 0.9 thou/uL (0.8-5.3); ABSOLUTE MONOCYTES 2.4 thou/uL (0.0-1.2); ABSOLUTE NEUTROPHILS 19.2 thou/uL (1.6-8.1); BASOPHILS 0.1 %; EOSINOPHILS 0.2 %; HEMATOCRIT 29.9 % (37.0-47.0); HEMOGLOBIN 9.8 gm/dL (12.0-15.0); LYMPHOCYTES 4.1 %; MCH 31.3 pg (26.0-34.0); MCHC 32.8 g/dL (28.0-37.0); MCV 95.3 fL (80.0-100.0); MONOCYTES 10.5 %; MPV 8.6 fl. (7.2-11.1); NUCLEATED RBCS 1 /100WBC; PLATELET COUNT* 160 thou/uL (150-400); POLYS 85.1 %; RBC 3.14 mil/uL (4.20-5.00); WBC 22.6 thou/uL (4.0-11.0)
[2020-10-16 06:03] LABS: CALCIUM 6.7 mg/dL (8.5-10.1); CREATININE 1.8 mg/dL (0.6-1.3); POTASSIUM 5.8 mmol/L (3.5-5.1); TOTAL PROTEIN 6.1 g/dL (6.4-8.2)
[2020-10-16 06:34] LABS: INR 1.4; PROTIME 14.2 Seconds (9.20-11.50)
[2020-10-16 08:15] VITALS: BP 120/86
[2020-10-16 11:35] VITALS: BP 120/81
[2020-10-16 16:00] VITALS: BP 102/64
[2020-10-16 19:54] VITALS: BP 99/65
[2020-10-17] VITALS: BP 92/54
[2020-10-17 04:00] VITALS: BP 110/76
[2020-10-17 08:00] VITALS: BP 93/75
== END 2020-10-17 11:53 | DRG 597 ==
LOC: M.ERS 11:07 → M.2W 13:05 → M.ORTHSURG 13:05 → M.TBA-ER 13:05 → M.ORTHSURG 14:55 → M.2W 10-10 13:44
PROVIDERS: Emergency Medicine Emergency Medical Services; Internal Medicine; Nurse Practitioner Adult Health; ADMIT Internal Medicine; ATTEND Internal Medicine
PROC: 0DB98ZX Excision of Duodenum, Via Natural or Artificial Opening Endoscopic, Diagnostic (ICD-10-PCS; principal; 2020-10-08)
PROC: 0DB58ZX Excision of Esophagus, Via Natural or Artificial Opening Endoscopic, Diagnostic (ICD-10-PCS; principal; 2020-10-08)
PROC: 0DB68ZX Excision of Stomach, Via Natural or Artificial Opening Endoscopic, Diagnostic (ICD-10-PCS; principal; 2020-10-08)
DX: C79.81 Secondary malignant neoplasm of breast (principal); E43 Unspecified severe protein-calorie malnutrition; N17.9 Acute kidney failure, unspecified; C78.7 Secondary malignant neoplasm of liver and intrahepatic bile duct; C79.51 Secondary malignant neoplasm of bone; N18.4 Chronic kidney disease, stage 4 (severe); E87.1 Hypo-osmolality and hyponatremia; B37.81 Candidal esophagitis; Z68.41 Body mass index [BMI] 40.0-44.9, adult; K21.00 Gastro-esophageal reflux disease with esophagitis, without bleeding; E87.5 Hyperkalemia; K44.9 Diaphragmatic hernia without obstruction or gangrene; K29.70 Gastritis, unspecified, without bleeding; K25.9 Gastric ulcer, unspecified as acute or chronic, without hemorrhage or perforation; E86.0 Dehydration; N18.9 Chronic kidney disease, unspecified; K81.9 Cholecystitis, unspecified; Z51.5 Encounter for palliative care; Z66 Do not resuscitate; Z20.822 Contact with and (suspected) exposure to COVID-19; Z93.3 Colostomy status; Z86.718 Personal history of other venous thrombosis and embolism; Z90.710 Acquired absence of both cervix and uterus; Z79.899 Other long term (current) drug therapy; Z88.8 Allergy status to other drugs, medicaments and biological substances; Z87.891 Personal history of nicotine dependence; Z72.89 Other problems related to lifestyle; Z92.21 Personal history of antineoplastic chemotherapy